=== PATIENT | male | born 1960 | race Caucasian/White ===

== ENCOUNTER 2024-05-23 12:24 | Outpatient (OUT) | payer SELFPAY ==
--- NOTE | 2024-05-23 12:27 | XR_ITS ---
The [address] [address] Patient Name: BOB LIMA MRN: [id number] date: 1960 Sex: M Assigned Patient Location: [facility] Current Patient Location: Accession/Order Number: [id number] Exam Date: 05/23/2024 12:45 Report Date: 05/24/2024 06:41 At the request of: BOB BREWER Procedure: XR foot KASHMIR min 3V EXAMINATION: XR foot KASHMIR min 3V HISTORY: pain in right and left foot COMPARISON: No relevant comparison available. FINDINGS: RIGHT FINDINGS: BONES: Prior bunionectomy, first metatarsal osteotomy and repair, and bone staple within first proximal phalanx. Moderate degenerative changes the first metatarsophalangeal joint. Multifocal mild degenerative changes of the interphalangeal joints of the second through 5th toes. Prior resection versus posttraumatic changes involving the head of the fourth proximal phalanx. SOFT TISSUES: No visible soft tissue swelling. OTHER: Negative. LEFT FINDINGS: BONES: Moderate degenerative changes the first metatarsophalangeal joint. Possibly prior bunionectomy. Mild degenerative changes throughout the interphalangeal joints. SOFT TISSUES: No visible soft tissue swelling. OTHER: Negative. 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 LEFT CONCLUSION: Mild-moderate degenerative changes. Electronically authenticated by: JANIS RAYGOZA Date: 05/24/2024 06:41
== END 2024-05-23 12:25 | disposition home or self-care (01) ==
PROVIDERS: Visit Provider Podiatrist Foot & Ankle Surgery
DX: M79.671 Pain in right foot (principal); M79.672 Pain in left foot; Z98.890 Other specified postprocedural states
CPT/HCPCS: 73630

== ENCOUNTER 2024-06-07 12:07 | Outpatient (OUT) | payer MEDICAID, SELFPAY ==
--- NOTE | 2024-06-07 12:15 | ECG_ITS ---
The [facility] Test Date: 2024-06-07 Pat Name: BOB LIMA Department: Room: - Gender: Male [employer] Tender: : 1960 Requested By: BOB BREWER Order Number: [id number] Reading MD: HENNA HINOJOSA Measurements Intervals Mcgill Rate: 60 P: 31 ND: 183 QRS: -19 QRSD: 99 T: 37 QT: 392 QTc: 394 Interpretive Statements SINUS RHYTHM WITH SINUS ARRHYTHMIA POSSIBLE RIGHT VENTRICULAR CONDUCTION DELAY [RSR (QR) IN V1/V2] MODERATE VOLTAGE CRITERIA FOR LVH, CONSIDER NORMAL VARIANT [MEETS CRITERIA IN ONE OF: R(aVL), S(V1), R(V5), R(V5/V6)+S(V1)] No previous ECG available for comparison Electronically Signed On 06-07-2024 17:43:27 EST by HENNA HINOJOSA
--- OUTSIDE RECORDS SUMMARY | 2024-06-07 12:27 | XMS_ITS | CCD ---
Author Organization [facility] Care Team Providers Care Car Greaser Name Role Phone CLEMENTINE PAGE Attending Unavailable [...] symptoms, # 30 cap(s), Refills(s) 0, [facility], cm, 12/25/23 17:13:00 EDT, [...] Daily, # 90 tab(s), Refills(s) 3, [facility], cm, 10/25/23 12:56:00 EDT, Height/Length Dosing, 99.8, kg, 10/25/23 12:56:00 EDT, Weight Dosing Start Date: 10/25/23 Status: Ordered montelukast 10 mg oral tablet (2 sources) Leukotriene Receptor Antagonist Start: 10-25-2023 take 1 tablet by mouth once daily Singulair 10 mg Tab 10 mg = 1 tab(s), Oral, Daily, # 90 tab(s), Refills(s) 3, Pharmacy: [facility] 1986, 182, cm, 10/25/23 12:56:00 EDT, Height/Length Dosing, 99.8, kg, 10/25/23 12:56:00 EDT, Weight Dosing Start Date: 10/25/23 Status: Ordered predniSONE 20 mg oral tablet (1 source) Start: 12-25-2023 End: 12-29-2023 take 3 tablets by mouth once daily predniSONE 20 mg Tab 60 mg = 3 tab(s), Oral, Daily, X 4 day(s), # 12 tab(s), Refills(s) 0, Pharmacy: [facility] 1986, 182, cm, 12/25/23 17:13:00 EDT, [...] symptoms, # 30 cap(s), Refills(s) 0, Pharmacy: [facility] 1985, 182, cm, 12/25/23 17:13:00 EDT, Height/Length Dosing, 101.7, kg, 12/25/23 17:13:00 EDT, Weight Dosing famotidine, 40 mg = 2 tab(s), Tab, Oral, Once, Stop date 12/25/23 17:42:00 EDT, STAT, Start date 12/25/23 17:42:00 EDT, 12/25/23 17:42:00 EDT predniSONE, 60 mg = 3 tab(s), Oral, Daily, X 4 day(s), # 12 tab(s), Refills(s) 0, Pharmacy: [facility] 1985, 182, cm, 12/25/23 17:13:00 EDT, [...] CONWAY In 3 days 12/28/[address] [place], (more content not included)... Normal [facility] Comment on above: Result Comment: Elec tronically Signed By: Silverio Chen PA-C\.br\Date and Time Signed: 12/25/23 21:28 EDT\.br\Electronically Co-Signed By: Jimy Shook DO\.br\Date and Time Co-Signed: 01/05/24 06:43 EDT ED Clinical Summaryon 2023 ED Clinical Summary ED Clinical Summary [address] [address] ED Clinical Summary Person Information Name: BOB LIMA [facility] Age: 63 Years : 1960 Sex: Male Language: Belarusian PCP: Aashish CONWAY DO, FAAFP Marital Status: [...] 12/25/2023 19:05:59 12/25/2023 19:05:59 12/25/2023 19:05:59 ADDRESS: [address] [place] [address] [address] [place] [id number] PHYS DOC NOTES: MEDICAL INFORMATION: Prescriptions Given: New Medications [facility], [address] [place], [place] [id number], [phone] diphenhydrAMINE (diphenhydrAMINE 25 mg Cap) 1 Capsules [...] Follow up: With: Address: When: Aashish Logan [facility], [facility] [address] [place] [id number] [facility] (1) In 3 days 12/28/2023 DIAGNOSIS: Bee sting reaction Normal [facility] ED Patient Summaryon ED Patient Summary ED Patient Summary [address] [address] Patient Discharge Instructions Person Information Name: BOB LIMA Age: 63 Years Arrival Date: 12/25/2023 17:07:15 Discharge Diagnosis: Bee sting reaction Primary Care Physician: Aashish CONWAY DO, FAAFP Provider Information Primary Provider: Jimy Shook DO Advanced Barrel And Receiver Aligner:Silverio Chen PA-C. The exam and treatment you received in the Emergency Department were for an urgent problem and are not intended as complete care. It is important that you follow up with a doctor, nurse practitioner, or physician?s kindergarten instructional assistant for ongoing care. If your symptoms become [...] Instructions: With: Address: When: Aashish [place], [facility] [place] [address] [facility] (1) In 3 days 12/28/2023 In the event that this physician does not participate in your insurance network, please consult with your insurance company to find a nearby participating provider. Patient Education Materials: Bee, Wasp, or Hornet Sting, Adult A MESSAGE TO ALL PATIENTS REGARDING OPIOIDS PRESCRIPTION OPIOIDS: WHAT YOU NEED TO KNOW Prescription opioids can be used to help relieve sokzjwff-bu-uztpvk pain and are often prescribed following a [...] be struggling with addiction, tell your health youth care specialist and ask for guidance or call [facility] (more content not included)... Normal [facility] Physician Referralon 024 Physician Referral [id number]#1.00TIFF Normal [facility] Family Medicine Office/Clini c Noteon 10-25-2023 [...] kicking my butt, the Singulair helps the [place] is the worst is getting toward the [...] labeling, # 21 tab(s), Refills(s) 1, Pharmacy: [facility], 182, cm, 07/19/23 11:42:00 EST, Height/Length Dosing, 102.2, kg, 07/19/23 11:42:00 EST, Weight Dosing 2. Left lumbar radiculitis (M54.16: Radiculopathy, lumbar region) see 1 Ordered: methylPREDNISolone, = 1 packet(s), Oral, As Directed, as directed on package labeling, # 21 tab(s), Refills(s) 1, Pharmacy: [facility] 1985, 182, cm, 07/19/23 11:42:00 EST, [...] weight manageme (more content not included)... Normal [facility] Comment on above: Result Comment: Elec [...] at home: Medicines ? Take or apply btvd-vaz-urnmwqw and prescription medicines only as told by [...] the hospital. Summary ? Take or apply rgex-oat-olvvrrr and prescription medicines only as told by [...] a row for (more content not included)... [facility] PT - Assessmentson 4 PT - Assessments [id number]#1.00TIFF [facility] PT - Home Exercise Programon 08-19-2023 PT - Home Exercise Program [id number]#1.00TIFF [facility] PT - Home Exercise Programon 08-10-2023 PT - Home Exercise Program [id number]#1.00TIFF [facility] PT - Home Exercise Programon 07-29-2023 PT - Home Exercise Program [id number]#1.00TIFF [facility] Consent for Treatmenton Consent for Treatment [id number]#1.00TIFF [facility] PT - Assessmentson PT - Assessments [id number]#1.00TIFF [facility] PT - Consentson 07-22-2023 PT - Consents [id number]#1.00TIFF [facility] PT - Home Exercise Programon 07-22-2023 PT - Home Exercise Program [id number]#1.00TIFF Kirt Lanier [facility] Ambulatory Visit Summaryon 0 07-19-2023 Ambulatory [...] hernia, History of repair of umbilical hernia, Oley tooth. Discharge Vitals Temperature (Temporal Artery) 36.7 ?C Heart Rate (Peripheral) 74 Respiratory Rate 18 Blood Pressure 134/82 Height 182 cm Height 72 in Weight 102.2 kg Weight 224.84 lb BMI 30.85 What to do next You Need to Schedule the Following Appointments Follow Up with Aashish CONWAY DO, FAAFP, JULIUS, PED When: In 3 months Where: [address] [facility] [place] [address]- Medications What How Much When Why Instructions New amoxicillin-clavulanate (Augmentin 875 mg oral tablet) 1 Tablets By Mouth Every 12 hours Frontal sinusitis Duration: 10 Days Pickup at [facility] 1985 New methylPREDNISolone (Medrol 4 mg Tab) 1 Packets By Mouth As Directed Left lumbar radiculitis Sciatica of left side Refills: 1 as directed on package labeling Pickup at [facility] 1985 Unchanged ascorbic acid (Vitamin C 500 mg Tab) 1 Tablets By Mouth Every day Unchanged fluticasone nasal (Flonase 0.05 mg/ inh nasal spray) 50 Microgram Nasal Inhalation 2 times a day Unchanged loratadine 10 Milligram By Mouth Every day Unchanged montelukast (Singulair 10 mg Tab) 1 Tablets By Mouth Every day Pharmacy Information [facility] 1986: [address] [place], [place] [id number] [phone] Allergies No Known Allergies Problems Ongoing - [...] tailbone toward (more content not included)... Normal [facility] BMPon 07-19-2023 Anion gap [Moles/Vol] 13 mmol/L Normal 6-16 [facility] Comment on above: Performed By: #### 2 648995, 71375305, 7800442, 0899811, 3807994, 69133279, 572861874 ####[facility] [address] [place] [address] Calcium [Mass/Vol] 9.6 mg/dL Normal 8.9-11.1 [facility] Comment on above: Performed By: #### 2 013035, 91976660, 3962165, 6851563, 9429939, 09175954, 672572107 ####[facility] [address] [place] [address] Chloride [Moles/Vol] 102 mmol/L Normal 101-111 [facility] Comment on above: Performed By: #### 2 368460, 06134519, 8971422, 1006781, 8563615, 91044342, 593469730 ####[facility] [address] [place] [address] CO2 [Moles/Vol] 28 mmol/L Normal 21-31 [facility] Comment on above: Performed By: #### 2 306285, 64724456, 0296398, 1139578, 3786319, 41060252, 113048761 ####[facility] [address] [place] [address] Creatinine [Mass/Vol] 1.1 mg/dL Normal 0.5-1.3 [facility] Comment on above: Performed By: #### 2 534958, 99478520, 0003822, 6451867, 1012400, 59498943, 862308034 ####[facility] [address] [place] [address] Glucose [Mass/Vol] 83 mg/dL Normal 55-199 [facility] Comment on above: Performed By: #### 2 224863, 06345970, 0540896, 8329259, 0366267, 78083451, 250066115 ####[facility] [address] [place] [address] Potassium [Moles/Vol] 4.3 mmol/L Normal 3.5-5.3 [facility] Comment on above: Performed By: #### 2 555362, 39262345, 6074089, 1857311, 2141131, 69788203, 929713237 ####[facility] [address] [place] [address] Sodium [Moles/Vol] 139 mmol/L Normal 135-145 [facility] Comment on above: Performed By: #### 2 978138, 16635249, 0255781, 9392912, 0169954, 23487366, 749637469 ####[facility] [address] [place] [address] Urea nitrogen [Mass/Vol] 15 mg/dL Normal 5-21 [facility] Comment on above: Performed By: #### 2 025000, 33065633, 4844851, 6154963, 1652113, 01210863, 682845336 ####[facility] [address] [place] [address] Urea nitrogen/Creatini ne [Mass ratio] 14 No Units Normal 10-20 [facility] Comment on above: Performed By: #### 2 560654, 45434793, 2120390, 5613645, 7361536, 75464794, 387884121 ####[place] [address] [place] [address] CBC w/ Auto Diffon 4 Basophils/100 WBC (Bld) 0.5 % Normal 0.0-2.0 [facility] Comment on above: Performed By: #### 2 568689, 14847455, 1940943, 3787763, 5626085, 27897697, 857079840 ####[address] [address] Basophils/Leukocy les Auto (Bld) [Pure # fraction] 0.0 E9/L Normal 0.0-0.2 [facility] Comment on above: Performed By: #### 2 822595, 15926703, 8480112, 4331499, 0308310, 54738011, 585141625 ####[address] [address] Eosinophils (Bld) [#/Vol] 0.2 E9/L Normal 0.0-0.5 [facility] Comment on above: Performed By: #### 2 284123, 44795638, 6257719, 6678379, 8385807, 03074588, 516487659 ####[address] [address] Eosinophils/100 WBC (Bld) 2.4 % Normal 0.0-8.0 [facility] Comment on above: Performed By: #### 2 848527, 99378130, 0091782, 9415623, 0640342, 79030729, 886876675 ####[address] [address] Erythrocyte distribution width (RBC) [Ratio] 13.4 % Normal 10.9-14.2 [facility] Comment on above: Performed By: #### 2 219750, 91813694, 1912424, 5999695, 8560827, 84126980, 161888002 ####[facility] [address] [place] [address] Hematocrit (Bld) [Volume fraction] 44.0 % Normal 37.7-49.0 [facility] Comment on above: Performed By: #### 2 555013, 20118443, 2803813, 2758158, 8260170, 22436181, 159393210 ####[place] [address] [place] [address] Hemoglobin (Bld) [Mass/Vol] 14.7 g/dL Normal 13.5-17.5 [facility] Comment on above: Performed By: #### 2 642221, 12831054, 5175936, 8836559, 0616284, 30945142, 067807126 ####[address] [address] Lymphocytes (Bld) [#/Vol] 2.2 E9/L Normal 1.0-4.0 [facility] Comment on above: Performed By: #### 2 397420, 83801177, 3686286, 6241279, 2038445, 84788047, 409860428 ####[address] [address] Lymphocytes/100 WBC (Bld) 26.5 % Normal 14.0-50.0 [facility] Comment on above: Performed By: #### 2 466408, 43893343, 9965268, 9104885, 1394674, 79991459, 534334080 ####[place] [place] [address] MCH (RBC) [Entitic mass] 30.0 pg Normal 27.0-34.0 [facility] Comment on above: Performed By: #### 2 988706, 41667189, 4367502, 4180362, 6852567, 09778044, 977967844 ####[address] [address] MCHC (RBC) [Mass/Vol] 33.4 g/dL Normal 31.4-36.0 [facility] Comment on above: Performed By: #### 2 262910, 17200778, 4580879, 5918750, 5764174, 18730535, 413461707 ####[facility] [address] [place] [address] MCV (RBC) [Entitic vol] 89.7 fL Normal 80.0-100.0 [facility] Comment on above: Performed By: #### 2 447622, 13366596, 0517862, 1872135, 6580965, 63836390, 552608453 ####[address] [place] [address] Monocytes (Bld) [#/Vol] 0.7 E9/L Normal 0.2-1.0 [facility] Comment on above: Performed By: #### 2 044720, 98298694, 5181913, 4247636, 9959283, 55901901, 048832672 ####[address] [address] Neutrophils (Bld) [#/Vol] 5.1 E9/L Normal 2.0-7.5 [facility] Comment on above: Performed By: #### 2 902716, 20735587, 9546092, 5540037, 9769942, 72918706, 562535541 ####[address] [address] Neutrophils/100 WBC (Bld) 62.4 % Normal 36.0-75.0 [facility] Comment on above: Performed By: #### 2 300209, 14904777, 4587475, 8235341, 0813875, 80440304, 059575014 ####[address] [address] [place] [address] Platelet 256.0 E9/L Normal 150.0-500.0 [facility] Comment on above: Performed By: #### 2 147173, 32147022, 5461468, 0193944, 9563569, 89054414, 239449695 ####[facility] [address] [place] [address] Platelet mean volume (Bld) [Entitic vol] 8.1 fL Normal 6.4-10.8 [facility] Comment on above: Performed By: #### 2 132809, 23037011, 7319117, 7032221, 2100029, 65625444, 227995738 ####[facility] [address] [place] [address] RBC (Bld) [#/Vol] 4.9 E12/L Normal 4.3-5.9 [facility] Comment on above: Performed By: #### 2 067929, 61218630, 3753049, 1553668, 5414095, 38871162, 533351964 ####[place] [address] [place] [address] WBC corrected for nucl RBC Auto (Bld) [#/Vol] 8.2 E9/L Normal 4.0-11.0 [facility] Comment on above: Performed By: #### 2 011855, 07665887, 1896482, 5987061, 9822864, 33730098, 565144761 ####[facility] [address] [place] [address] Consent for Treatmenton Consent for Treatment [id number]#1.00TIFF Normal [facility] Family Medicine Office/Clini c Noteon 07-19-2023 [...] day(s), # 20 tab(s), Refills(s) 0, Pharmacy: [facility] 1985, 182, cm, 07/19/23 11:42:00 EST, [...] as di (more content not included)... Normal [facility] Comment on above: Result Comment: Elec tronically Signed By: MAN LEAL FAAFP, Aashish Vasquez\chris\Date and Time Signed: 07/19/23 12:47 EST Hep Func Panelon 07-19-2023 Albumin [Mass/Vol] 4.3 g/dL Normal 3.3-5.0 [facility] Comment on above: Performed By: #### 2 245553, 17598502, 9401927, 1007569, 0899968, 47218642, 187018249 ####[facility] [address] [place] [address] Albumin/Globulin (S) [Mass conc ratio] 1.5 Normal 1.1-2.2 [facility] Comment on above: Performed By: #### 2 246271, 70159801, 0077644, 0321471, 7856139, 88222257, 836133947 ####[facility] [address] [place] [address] ALP [Catalytic activity/Vol] 54 Int._Unit/L Normal 21-98 [facility] Comment on above: Performed By: #### 2 445373, 55703404, 8600777, 7029867, 6033906, 20209244, 591855958 ####[facility] [address] [place] [address] ALT No additional P-5'-P [Catalytic activity/Vol] 27 Int._Unit/L Normal 6-46 [facility] Comment on above: Performed By: #### 2 713589, 84635554, 4913116, 2843545, 0415263, 53099203, 998718434 ####[facility] [address] [place] [address] AST [Catalytic activity/Vol] 26 Int._Unit/L Normal 5-43 [facility] Comment on above: Performed By: #### 2 466987, 47396686, 0406515, 9574535, 1213523, 07338001, 770803017 ####[facility] [address] [place] [address] Bilirubin [Mass/Vol] 0.6 mg/dL Normal 0.0-1.1 [facility] Comment on above: Performed By: #### 2 789423, 40050701, 2229471, 3433923, 7366592, 74168359, 168874549 ####[facility] [address] [place] [address] Bilirubin.direct [Mass/Vol] 0.1 mg/dL Normal 0.0-0.4 [facility] Comment on above: Performed By: #### 2 271960, 93806037, 1943098, 0400216, 8047626, 74189509, 933319827 ####[facility] [address] [place] [address] Bilirubin.indirec t [Mass or moles/Vol] 0.5 mg/dL Normal 0.1-0.9 [facility] Comment on above: Performed By: #### 2 436843, 62157161, 7064596, 5052232, 7991761, 16431034, 342091622 ####[facility] [address] [place] [address] Globulin (S) [Mass/Vol] 2.9 g/dL Normal 1.4-4.0 [facility] Comment on above: Performed By: #### 2 956448, 94774346, 1773142, 4115080, 3359788, 42063132, 316208475 ####[facility] [address] [place] [address] Protein [Mass/Vol] 7.2 g/dL Normal 6.0-7.8 [facility] Comment on above: Performed By: #### 2 984133, 82480161, 2516498, 4729593, 5463773, 38655797, 008422946 ####[facility] [address] [place] [address] KrjS2grm 07-19-2023 HbA1c (Bld) [Mass fraction] 5.7 % Normal <=5.9 [facility] Comment on above: Performed By: #### 2 416506, 04339156, 8174873, 1612889, 0989058, 62788243, 357560332 ####[facility] [address] [place] [address] Lipid Panelon 07-19-2023 Cholesterol [Mass/Vol] 166 mg/dL Normal 120-200 [facility] Comment on above: Performed By: #### 2 342342, 93482360, 7046978, 1075023, 4064867, 27622431, 725528340 ####[facility] [address] [place] [address] Cholesterol in HDL [Mass/Vol] 34 mg/dL Invalid Interpretation Code [facility] Comment on above: Result Comment: '>= 60 LOW RISK' '<= 40 HIGH RISK' Performed By: #### 2 385953, 80593113, 1229525, 7380468, 8093202, 00819559, 483414381 ####[facility] [address] [place] [address] Cholesterol in LDL [Mass/Vol] 87 mg/dL Normal <=129 [facility] Comment on above: Performed By: #### 2 641901, 12540725, 1868260, 0560187, 6745173, 54578105, 363672384 ####[facility] [address] [facility] [place] [address] Cholesterol in VLDL [Mass/Vol] 51 mg/dL High 7-40 [facility] Comment on above: Performed By: #### 2 238161, 12059588, 7160382, 9688447, 8804189, 44995953, 386144867 ####[facility] [address] [place] [address] Triglyceride [Mass/Vol] 254 mg/dL High <=149 [facility] Comment on above: Performed By: #### 2 867783, 10824709, 4983901, 2624236, 0344512, 71430880, 864102277 ####[facility] [address] [place] [address] PSA Screen, Totalon 07-19-19 24 Prostate specific Ag [Mass/Vol] 0.5 ng/mL Normal 0.1-3.5 [facility] Comment on above: Result Comment: The concentration of PSA determined by different manufacturers can vary due to differences in assay methods and reagent specificity. Values obtained from different assay methods cannot be used interchangeably. The methodology used for this result was chemiluminescence using [employer] Access [employer]ite[employer] PSA reagent. Performed By: #### 2 670871, 01430810, 4618813, 4599400, 1182167, 13631165, 896988170 ####[facility] [address] [place] [address] Patient Educationon 07-19-19 24 Patient Education Orthopedics [...] the exercise (more content not included)... Normal [facility] eGFRon 07-19-2023 eGFR 76 mL/min/1.73 m2 Normal >=59 [facility] Comment on above: Order Comment: Order added by Discern Expert. Performed By: #### 2 824330, 87734092, 3244914, 0732703, 6936568, 85243017, 423543382 ####[facility] [address] [place] [address] Vital Signs Date Time Vital Sign Value Performing Clinician Rachel [facility] 12-25-2023 17:11-0400 Body temperature 97.88 [degF] Jimy Shook [facility] 12-25-2023 17:11-0400 Diastolic blood pressure 101 mm[Hg] Jimy Shook [facility] 12-25-2023 17:11-0400 Heart rate 70 /min Jimy Shook [facility] 12-25-2023 17:11-0400 Respiratory rate 16 /min Jimy Shook [facility] 12-25-2023 17:11-0400 SaO2% (BldA) [Mass fraction] 94 % Jimy Shook [facility] 12-25-2023 17:11-0400 Systolic blood pressure 163 mm[Hg] Jimy Shook [facility] 10-25-2023 12:50-0400 Blood Pressure Location Aashish CEELE [facility] 10-25-2023 12:50-0400 Body temperature 97.88 [degF] Aashish KAPLE [facility] 10-25-2023 12:50-0400 Diastolic blood pressure 70 mm[Hg] Aashish KAPLE [facility] 10-25-2023 12:50-0400 Heart rate 74 /min Aashish KAPLE [facility] 10-25-2023 12:50-0400 Respiratory rate 18 /min Aashish KAPLE [facility] 10-25-2023 12:50-0400 SaO2% (BldA) [Mass fraction] 98 % Aashish CONWAY [facility] 10-25-2023 12:50-0400 Systolic blood pressure 120 mm[Hg] Aashish CONWAY [facility] Encounters Encounter Date Encounter Type Care Provider Facility Start: 12-25-2023 End: 12-25-2023 Emergency department patient visit Jimy Michael Shook [facility] Start: 12-21-2023 End: 12-21-2023 ambulatory JARRELL HEBERT Not Available Start: 10-25-2023 End: 10-25-2023 ambulatory Aashish CONWAY Facility:[facility] Start: 10-25-2023 End: 10-25-2023 Patient encounter procedure Aashish CONWAY [facility] Start: 07-22-2023 End: 11-14-2023 ambulatory Aashish CONWAY Facility:[facility] Start: 07-19-2023 End: 07-19-2023 ambulatory Aashish CONWAY Facility:[facility] Start: 07-19-2023 End: 07-19-2023 ambulatory Aashish CONWAY Facility:[facility] Start: 05-13-2023 End: 05-13-2023 ambulatory CLEMENTINE PAGE Facility:[facility] Procedures Date Procedure Procedure Detail Performing [...] cility 08-06-2023 zoster vaccine recombinant Aashish CONWAY [facility] 05-01-2023 zoster vaccine recombinant Aashish CONWAY [facility] 08-24-2020 SARS-CoV-2 (COVID-19 ) mRNA-1273 vaccine Aashish CONWAY [facility] 07-27-2020 SARS-CoV-2 (COVID-19 ) mRNA-1273 vaccine Aashish CONWAY [facility] 03-06-2014 influenza virus vaccine, unspecified formulation Aashish CONWAY [facility] 12-01-2007 tetanus toxoid, reduced diphtheria toxoid, and acellular pertussis vaccine, adsorbed Aashish CONWAY [facility] NEGATED: Highlighted row has not occurred!05-26-2019 influenza virus vaccine, live, attenuated, for intranasal use Aashish CONWAY [facility] NEGATED: Highlighted row has not occurred!03-17-2019 influenza virus vaccine, unspecified formulation Aashish CONWAY [facility] Payers Date Payer Category Payer Medicaid [id number] 1960 Unknown [id number] 2.16.84 [id number] 1960 Unknown [id number] 2.16.8 [id number] 1960 Unknown [id number] 2.16.8 [id number] 1960 Unknown [id number] 2.16.8 [id number] 1960 Unknown [id number] 2.16.8 [id number] 1960 Unknown [id number] 2.16.8 [id number] Social History Date Type Detail Facility Start: 10-25-2023 Tobacco smoking status Never s moked tobacco (finding) [facility] Tobacco smoking status Never [facility] Sex Assigned At Male [facility] Functional Status Date Assessment Result Facility 12-25-2023 Functional Status N/A [facility] 10-25-2023 Functional Status N/A [facility] Discharge instructions 12-25-2023 Note [...] your health care provider. Apply or take wvuz-jhh-symacml and prescription medicines only as told by [...] provider. Document Revised: 06/30/2022 Document Reviewed: 06/30/2022 [employer] Patient Education 2022 [employer]. Follow Up Care 12/25/2023 17:08:31 With:Aashish CONWAY Address: [address], [place] [address]- Business (1) When:12/28/2023 18:28:09 [facility] Clinical Note 12-25-2023 Note Date & Type [...] health care provider. ? Apply or take xjsb-tbl-pqzphyn and prescription medicines only as told by [...] swarm seems likely. (more content not included)... [facility] Discharge instructions 10-25-2023 Note Date & Type Note Facility 10-25-2023 Hospital Discharg e instructions Patient Education 10/25/2023 13:10:35 Allergies, Adult, Chtu-gs-Wtie Allergies, Adult An allergy means that your [...] instructions at home: Medicines Take or apply aich-qai-arjbctl and prescription medicines only as told by [...] to the hospital. Summary Take or apply aeam-htu-ajqylzq and prescription medicines only as told by [...] provider. Document Revised: 03/13/2020 Document Reviewed: 03/13/2020 [employer] Patient Education 2022 [employer]. 10/25/2023 13:10:27 Back Exercises, Rnii-pe-Bxis Back Exercises These exercises help to make [...] provider. Document Revised: 07/16/2021 Document Reviewed: 07/16/2021 [employer] Patient Education 2022 [employer]. Follow Up Care 07/19/2023 12:36:38 With:MAN LEAL FAAFP, Aashish Vasquez, FAM, PED Address: [address], [place] [address]- When:Within 1 Year(s) With:Aashish CONWAY DO, FAAFP, FAM, PED Address: [address] [place] [address] [place] [address]- When:Within 6 Month(s) [facility] Progress note 05-13-2023 Note Date & Type Note Facility 05-13-2023 Note HNO ID: [id number] Author: Clementine Page, DELMER Service: ? Author Type: BROACH SETTER Type: Progress Notes Filed: 05/13/2023 3:16 PM [...] Page, OD May 13, 2023 3:15 PM [facility] Evaluation + Plan note Note Date & Type Note Facility Evaluation + Plan note [facility] Hospital course Narrative Note Date & Type Note Facility Hospital course Narrative No data available for this section [facility] Progress note Note Date & Type Note Facility Progress note No data available for this section [facility] Reason for referral (narrative) Note Date & Type Note Facility Reason for referral (narrative) Referred by: Aashish CONWAY DO, FAAFP [facility] Summary Purpose Family History No [...] section and content) DATE CREATED AUTHOR 05/15/2023 [facility] DATE CREATED AUTHOR AUTHOR'S ORGANIZ ATION 12/23/2023 [facility] DATE CREATED AUTHOR AUTHOR'S ORGANIZ ATION 01/06/2024 [facility] Patient Care team informatio n (unrecognized section and content) Personnel Name: Aashish CONWAY DO, FAAFP Address: Address: [address] [place] [address] Personnel Name: Aashish CONWAY DO, FAAFP Address: Address: [address] [place] [address] FOR RECORDS PERTAINING TO PATIENTS WHO ARE [...] BE BASED ON THE PRIMARY CLINICAL RECORDS. [facility]. provides no warranty or guarantee of the accuracy or completeness of information in this document.
--- NOTE | 2024-06-07 13:10 | PM.PRESUREVA ---
History of Present Illness History of Present Illness Chief complaint: right foot hallux valgus Narrative: Mr. Nguyen 63-year-old male presents to presurgical testing with complaints of pain to his right first metatarsal. He been evaluated by Dr. Aguilar with a diagnosis of right foot hallux valgus. He is scheduled for right first metatarsal phalangeal joint fusion removal of orthopedic hardware, correction of toe deformities, soft tissue balancing and bone graft as needed he is scheduled on June 12, 2024. Review of Systems ROS Narrative REVIEW OF SYSTEMS: Negative except as stated in HPI, ten or more systems reviewed. Constitutional: No fever, chills, weakness ENT: No sore throat or epistaxis Cardiovascular: No edema, chest pain, palpitations, or activity intolerance Respiratory: No shortness of breath, cough, or wheezing Musculoskeletal: Complains of pain to right foot and right first toe Gastrointestinal: No abdominal pain, constipation, diarrhea, or vomiting Genitourinary: No dysuria or hematuria Neurological: No numbness, tingling, weakness, or headache Psychiatric: No mood changes PFSH PFSH Medical History (Updated 06/07/24 @ 13:17 by Mary Marin) Hallux valgus of right foot ?M20.11 - Hallux valgus (acquired), right foot (ICD-10) Seasonal allergies ?J30.2 - Other seasonal allergic rhinitis (ICD-10) Surgical History (Updated 06/07/24 @ 12:47 by Mary Marin) History of bunionectomy ?Z98.890 - Other specified postprocedural states (ICD-10) History of hernia repair ?Z98.890 - Other specified postprocedural states (ICD-10) ?Z87.19 - Personal history of other diseases of the digestive system (ICD-10) Family History (Updated 06/07/24 @ 12:45 by Mary Marin) Other Family history of coronary artery disease Family history of heart disease Family history of myocardial infarction Social History (Updated 06/07/24 @ 12:42 by Mary Marin) Within the past year, how often did you have a drink containing alcohol: never Score interpretation: A score less than 4 is consistent with normal alcohol consumption. Smoking status: Never smoker Non-prescribed substance use: denies use Previous occupational history: career development coordinator/teacher Highest level of school completed/degree received: Associate degree: occupational, technical, vocational program Meds Home Medications and Allergies Allergies Allergy/AdvReac Type Severity Reaction Status Date / Time No Known Drug Allergies Allergy Verified 06/07/24 12:36 Exam Narrative Exam Narrative: Constitutional: Awake, alert, comfortable, well-appearing, nontoxic, interactive, vital signs as charted Head: Normocephalic, atraumatic Eyes: Conjunctiva and lids normal to inspection, pupils normal ENT: Tympanic membranes pearly ojeda, nonerythematous, noninjected, naris patent, posterior oropharynx clear, oral mucosa moist Neck: Supple, normal appearance, normal range of motion, no meningeal signs, no lymphadenopathy Respiratory: No respiratory distress, breath sounds clear Cardiovascular: Regular rate and rhythm, strong and regular heart tones Abdomen: Nontender, normal bowel sounds, soft, no CVA tenderness Musculoskeletal: Normal gait please see Dr. Redmond thorough examination of the right foot from office visit note dated 05/23/2024 Skin: No rashes or induration, no lesions, only visible skin inspected Neuro: No neurological deficits, normal sensation Psychiatric: Oriented ?3, normal affect Assessment and Plan Assessment and Plan (1) Hallux valgus of right foot: Plan He is scheduled for right first metatarsal phalangeal joint fusion, removal of orthopedic hardware, correction of toe deformities, soft tissue balancing and bone graft this procedure is scheduled on 06/12/[address] Aguilar
== END 2024-06-07 12:08 | disposition home or self-care (01) ==
LOC: PST 12:07
PROVIDERS: PCP Family Medicine; Visit Provider Podiatrist Foot & Ankle Surgery
DX: Z01.810 Encounter for preprocedural cardiovascular examination (principal); Z01.818 Encounter for other preprocedural examination; M20.11 Hallux valgus (acquired), right foot
CPT/HCPCS: 93005; G0463

== ENCOUNTER 2024-06-12 07:05 | Day surgery (SDC) | payer MEDICAID, SELFPAY ==
--- OUTSIDE RECORDS SUMMARY | 2024-06-07 12:18 | XMS_ITS | CCD ---
Author Organization [facility] Care Team Providers Care Salt Miner Name Role Phone CLEMENTINE PAGE Attending Unavailable Aashish CONWAY Primary Care Physician JARRELL HEBERT Attending Unavailable AASHISH CONWAY Referring Unavailable Aashish CONWAY Referring Unavailable Aashish CONWAY Attending Unavailable Aashish CONWAY Admitting Unavailable Aashish CONWAY Attending Unavailable Jimy Shook Attending Unavailable Aashish CONWAY Attending Unavailable Aashish CONWAY Attending Unavailable Medications Current Medications Medication Drug Class(es) Dates Sig (Normalized) Sig (Original) diphenhydrAMINE hydrochloride 25 mg oral capsule (1 source) Histamine-1 Receptor Antagonist Start: 12-25-2023 take 1 capsule by mouth three times daily as needed diphenhydrAMINE 25 mg Cap 25 mg = 1 cap(s), Oral, TID, PRN for allergy symptoms, # 30 cap(s), Refills(s) 0, [facility], [facility], cm, 12/25/23 17:13:00 EDT, Height/Length Dosing, 101.7, kg, 12/25/23 17:13:00 EDT, Weight Dosing Start Date: 12/25/23 Status: Ordered Flonase 0.05 mg/inh nasal spray (2 sources) Start: 03-24-2018 Flonase 0.05 mg/inh nasal spray 50 microgram, Nasal, BID, Refill(s) 0, Allergy symptoms Start Date: 03/24/18 Status: Ordered loratadine 10 mg oral tablet (2 sources) Start: 10-25-2023 take 1 tablet by mouth once daily Claritin 10 mg Tab 10 mg = 1 tab(s), Oral, Daily, # 90 tab(s), Refills(s) 3, [facility], [facility], cm, 10/25/23 12:56:00 EDT, Height/Length Dosing, 99.8, kg, 10/25/23 12:56:00 EDT, Weight Dosing Start Date: 10/25/23 Status: Ordered montelukast 10 mg oral tablet (2 sources) Leukotriene Receptor Antagonist Start: 10-25-2023 take 1 tablet by mouth once daily Singulair 10 mg Tab 10 mg = 1 tab(s), Oral, Daily, # 90 tab(s), Refills(s) 3, Pharmacy: [facility], 182, cm, 10/25/23 12:56:00 EDT, Height/Length Dosing, 99.8, kg, 10/25/23 12:56:00 EDT, Weight Dosing Start Date: 10/25/23 Status: Ordered predniSONE 20 mg oral tablet (1 source) Start: 12-25-2023 End: 12-29-2023 take 3 tablets by mouth once daily predniSONE 20 mg Tab 60 mg = 3 tab(s), Oral, Daily, X 4 day(s), # 12 tab(s), Refills(s) 0, Pharmacy: [facility], 182, cm, 12/25/23 17:13:00 EDT, Height/Length Dosing, 101.7, kg, 12/25/23 17:13:00 EDT, Weight Dosing Start Date: 12/25/23 Stop Date: 12/29/23 Status: Ordered Vitamin C 500 mg Tab (2 sources) Start: 03-17-2019 take 1 tablet by mouth once daily Vitamin C 500 mg Tab 500 mg = 1 tab(s), Oral, Daily, Refills(s) 0 Start Date: 03/17/19 Status: Ordered Problems Problem Classification Problem Date Documented Date Episodic/Chronic Acquired foot deformities (2 sources) Hammer toe 03-07-2012 Chronic Comment on above: 2ND, 3RD, 4TH TOES R IGHT FOOT Acquired foot deformities (2 sources) Bunion 07-28-2013 Episodic Comment on above: RIGHT FOOT Acute bronchitis (2 sources) Acute infective bronchitis 06-12-2019 Episodic Allergic reactions (3 sources) Other allergy status, other than to drugs and biological substances; Translations: [Environmental allergy] Onset: 10-25-2023 Episodic Diabetes mellitus without complication (2 sources) Hyperglycemia 03-16-2019 Episodic Other and unspecified benign neoplasm (3 sources) Melanocytic nevus of trunk; Translations: [Melanocytic nevi of trunk] Onset: 10-25-2023 Episodic Other connective tissue disease (2 sources) Olecranon bursitis 03-16-2019 Episodic Other male genital disorders (2 sources) Impotence 03-16-2019 Chronic Other nutritional; endocrine; and metabolic disorders (2 sources) Obese class I; Translations: [Body mass index (BMI) 30.0-30.9, adult] Onset: 10-25-2023 Chronic Other nutritional; endocrine; and metabolic disorders (1 source) Obesity; Translations: [Other obesity due to excess calories] Onset: 10-25-2023 Chronic Other upper respiratory infections (2 sources) Frontal sinusitis 07-19-2023 Chronic Poisoning by nonmedicinal substances (1 source) Poisoning by bee sting; Translations: [Toxic effect of venom of bees, accidental (unintentional), initial encounter] Onset: 12-25-2023 Episodic Spondylosis; intervertebral disc disorders; other back problems (6 sources) Lumbar radiculopathy; Translations: [Radiculopathy, lumbar region] Onset: 10-25-2023 Episodic Unclassified (4 sources) Patient encounter status 03-17-2019 Unclassified (2 sources) Well adult 07-19-2023 Results Test Name Value Interpretation Reference Range Facility ED Note-Physicianon 01-05-20 ED Note-Physician ED Note-Physician Basic Information Time Seen: Silverio Chen PA-C 12/25/2023 17:20 History of Present Illness Patient is a 63-year-old male that presents today for evaluation after being stung by multiple hornets while doing yard work. Patient states that he was out using a weed [employer] doing trim work when he must of hit a beehive and was swarmed by hornets. He notes that he got stung on his bilateral calfs, behind his neck, and on both of his hands and forearms. He states that he has not been swelling up around the areas. They are somewhat tender and red. He denies any difficulty with breathing or chest pain or wheezing. He states that it happened about an hour before presenting to the ED. He states he is not allergic to anything including bees. He states that he does not have any throat swelling or tongue swelling and is feeling relatively well aside from where he got stung. Review of Systems No other aggravating or relieving factors no other associated symptoms no other prior treatments or complaints. Family: Reviewed and noncontributory Social: lives at home Review of systems negative unless otherwise specified in the HPI. Physical Exam Vitals & Measurements T: 36.6 ?C(Oral) HR: 70(Peripheral) RR: 16 BP: 163/101 SpO2: 94% HT: 182 cm WT: 101.7 kg BMI: 30.7 General: The patient appears well and in no apparent distress. Patient is resting comfortably on cart. Skin: Warm, dry, no pallor noted. Multiple bee stings noted to the posterior aspect of his neck behind his right ear, on his hands, and on his bilateral calves. No swelling. Mild erythema around the area. Head: Normocephalic, atraumatic Neck: No JVD Eye: PERRLA, EOMI ENT: Moist mucus membranes. No swelling to the throat or tongue or lips. Cardiovascular: Regular rate and rhythm. Normal peripheral perfusion Respiratory: CTA bilaterally. No respiratory distress no accessory muscle use no obvious audible wheezing Chest Wall: no deformity Musculoskeletal: normal ROM, no deformity, no swelling GI: Soft no obvious distention. No rebound or rigidity. No guarding. No tenderness. Neurological: A&O moves all extremities equal strength and symmetry Psychiatric: Cooperative and appropriate Medical Decision Making Patient is a 63-year-old male who presents today for evaluation after being stung by multiple hornets while doing yard work about an hour before presenting to the ED. He got stung on his bilateral calfs, behind his neck, and on both of his forearms and hands. He denies any systemic symptoms including chest pain, wheezing, throat swelling. On exam he is afebrile and nontoxic-appearing. SpO2 94% on room air. He is CTA to bilateral lung cabrales with no audible wheezing. No swelling to the throat, tongue, or lips. There are multiple bee stings noted to the posterior aspect of his neck behind his right ear, on his hands, and on his bilateral calves. Left erythema but no swelling around these areas. I provided the patient with a dose of diphenhydramine, famotidine, and prednisone here in the ED. After 2 hours of observation he still doing well and there are no signs of anaphylaxis and he is still CTA bilaterally with no evidence of wheezing or swelling. Will discharge him home with prednisone for 5 days as well as Benadryl to be used for the symptoms. He will follow-up with his PCP to ensure he is getting better within 3 days. Return to ED precautions were reviewed with the patient at length. Assessment/Plan Bee sting reaction (T63.441A: Toxic effect of venom of bees, accidental (unintentional), initial encounter) Orders: diphenhydrAMINE, 50 mg = 2 cap(s), Cap, Oral, Once, Stop date 12/25/23 17:42:00 EDT, STAT, Start date 12/25/23 17:42:00 EDT, 12/25/23 17:42:00 EDT diphenhydrAMINE, 25 mg = 1 cap(s), Oral, TID, PRN for allergy symptoms, # 30 cap(s), Refills(s) 0, Pharmacy: [facility], 182, cm, 12/25/23 17:13:00 EDT, Height/Length Dosing, 101.7, kg, 12/25/23 17:13:00 EDT, Weight Dosing famotidine, 40 mg = 2 tab(s), Tab, Oral, Once, Stop date 12/25/23 17:42:00 EDT, STAT, Start date 12/25/23 17:42:00 EDT, 12/25/23 17:42:00 EDT predniSONE, 60 mg = 3 tab(s), Oral, Daily, X 4 day(s), # 12 tab(s), Refills(s) 0, Pharmacy: [facility], 182, cm, 12/25/23 17:13:00 EDT, Height/Length Dosing, 101.7, kg, 12/25/23 17:13:00 EDT, Weight Dosing predniSONE, 60 mg = 3 tab(s), Tab, Oral, Once, Stop date 12/25/23 17:42:00 EDT, STAT, Start date 12/25/23 17:42:00 EDT, 12/25/23 17:42:00 EDT Medications Administered Given Benadryl 25 mg Cap, 50 mg, Oral famotidine 20 mg Tab, 40 mg, Oral predniSONE 20 mg Tab, 60 mg, Oral Disposition Plan Patient Discharge Condition Stable Discharge Disposition Home Discharge Prescription List Prescriptions diphenhydrAMINE 25 mg Cap, 25 mg= 1 cap(s), Oral, TID, PRN predniSONE 20 mg Tab, 60 mg= 3 tab(s), Oral, Daily Follow-up With When Contact Information Aashish CONWAY In 3 days 12/28/[address] [place], (more content not included)... Normal [facility] Comment on above: Result Comment: Elec tronically Signed By: Silverio Chen PA-C\.br\Date and Time Signed: 12/25/23 21:28 EDT\.br\Electronically Co-Signed By: Jimy Shook DO\.br\Date and Time Co-Signed: 01/05/24 06:43 EDT ED Clinical Summaryon 2023 ED Clinical Summary ED Clinical Summary [address] [address] ED Clinical Summary Person Information Name: BOB LIMA [facility] Age: 63 Years : 1960 Sex: Male Language: Hungarian PCP: Aashish CONWAY DO, FAAFP Marital Status: Visit Id: Visit Reason: Allergic reaction - minor; Insect bite and/or sting; got attacked by yellow jackets outside, burning on hand, head and legs Speciality: Acuity: 4 Enc Type: Emergency Med Service: Emergency Arrival: 12/25/2023 17:07:15 Discharge: 12/25/2023 19:05:54 LOS: 000 01:58 Checkin: 12/25/2023 17:07:15 Checkout: 12/25/2023 19:05:54 Dispo Type: Home (Routine DC) EVENTS: Event Name Event Status Request Date/Time Start Date/Time Complete Date/Time Arrive Complete 12/25/2023 17:07:15 12/25/2023 17:07:15 12/25/2023 17:07:15 Document Home Meds Request 12/25/2023 17:07:15 Triage Complete 12/25/2023 17:07:15 12/25/2023 17:13:28 12/25/2023 17:13:28 Bed Assign Complete 12/25/2023 17:11:45 12/25/2023 17:11:45 12/25/2023 17:11:45 Dr Exam Complete 12/25/2023 17:11:45 12/25/2023 17:20:58 12/25/2023 17:20:58 RN Exam Complete 12/25/2023 17:11:45 12/25/2023 17:39:52 12/25/2023 17:39:52 Registration Complete 12/25/2023 17:20:58 12/25/2023 17:35:58 12/25/2023 17:35:58 Reg Complete Request 12/25/2023 17:35:58 Reg Bed Request Complete 12/25/2023 17:35:58 12/25/2023 17:35:58 12/25/2023 17:35:58 Dr Exam Complete 12/25/2023 17:39:47 12/25/2023 17:39:47 12/25/2023 17:39:47 Registration Request 12/25/2023 17:39:47 Meds Admin Complete 12/25/2023 17:43:11 12/25/2023 17:55:48 Discharge Complete 12/25/2023 18:28:11 12/25/2023 19:05:59 12/25/2023 19:05:59 Transfer Complete 12/25/2023 19:05:59 12/25/2023 19:05:59 12/25/2023 19:05:59 ADDRESS: [address] [place] [address] [address] [place] [id number] PHYS DOC NOTES: MEDICAL INFORMATION: Prescriptions Given: New Medications [facility], [address] [place], [place] [id number], [phone] diphenhydrAMINE (diphenhydrAMINE 25 mg Cap) 1 Capsules By Mouth 3 times a day as needed for allergy symptoms. Refills: 0. predniSONE (predniSONE 20 mg Tab) 3 Tablets By Mouth every day for 4 Days. Refills: 0. Medications to Continue with No Changes Other Medications ascorbic acid (Vitamin C 500 mg Tab) 1 Tablets By Mouth every day. fluticasone nasal (Flonase 0.05 mg/inh nasal spray) 50 Microgram Nasal Inhalation 2 times a day. loratadine (Claritin 10 mg Tab) 1 Tablets By Mouth every day. Refills: 3. montelukast (Singulair 10 mg Tab) 1 Tablets By Mouth every day. Refills: 3. PATIENT EDUCATION INFORMATION: Instructions: Bee, Wasp, or Hornet Sting, Adult Follow up: With: Address: When: Aashish Logan [facility], [facility] [place] [id number] [facility] (1) In 3 days 12/28/2023 DIAGNOSIS: Bee sting reaction Normal [facility] ED Patient Summaryon ED Patient Summary ED Patient Summary [address] [address] Patient Discharge Instructions Person Information Name: BOB LIMA Age: 63 Years Arrival Date: 12/25/2023 17:07:15 Discharge Diagnosis: Bee sting reaction Primary Care Physician: Aashish CONWAY DO, FAAFP Provider Information Primary Provider: Jimy Shook DO [employer] Supervisor:Silverio Chen PA-C. The exam and treatment you received in the Emergency Department were for an urgent problem and are not intended as complete care. It is important that you follow up with a doctor, nurse practitioner, or physician?s assistant store director for ongoing care. If your symptoms become worse or you do not improve as expected and you are unable to reach your usual health care provider, you should return to the Emergency Department. We are available 24 hours a day. BOB LIMA has been given the following list of patient education materials, prescriptions and follow-up instructions: Follow-up Instructions: With: Address: When: Aashish [place], [facility] [place] [address] [facility] (1) In 3 days 12/28/2023 In the event that this physician does not participate in your insurance network, please consult with your insurance company to find a nearby participating provider. Patient Education Materials: Bee, Wasp, or Hornet Sting, Adult A MESSAGE TO ALL PATIENTS REGARDING OPIOIDS PRESCRIPTION OPIOIDS: WHAT YOU NEED TO KNOW Prescription opioids can be used to help relieve eemkvviy-dk-mtyuot pain and are often prescribed following a surgery or injury, or for certain health conditions. These medications can be an important part of the treatment but also come with serious risks. It is important to work with your healthcare provider to make sure you are getting the safest, most effective care. WHAT ARE THE RISKS AND SIDE EFFECTS OF OPIOID USE? Prescription opioids carry serious risks of addiction and overdose, especially with prolonged use. An opioid overdose, often marked by slowed breathing, can cause sudden . The use of prescription opioids can have a number of side effects as well, even when taken as directed: ? Tolerance?meaning you might need to take more of the medication for the same pain relief ? Physical dependence?meaning you have symptoms of withdrawal when a medication is stopped ? Increased sensitivity to pain ? Constipation ? Nausea, vomiting, and dry mouth ? Sleepiness and dizziness ? Confusion ? Depression ? Low levels of testosterone that can result in lower sex drive, energy, and strength ? Itching and sweating RISKS ARE GREATER WITH: ? History of drug misuse, substance use disorder, or overdose ? Mental health conditions (such as depression or anxiety) ? Sleep apnea ? Older age (65 years and older) ? Avoid alcohol while taking prescription opioids. Also, unless specifically advised by your health care provider, medications to avoid include: ? Benzodiazepines (such as Xanax or Valium) ? Muscle relaxants (such as Soma or Flexeril) ? Hypnotics (such as Ambien or Lunesta) ? Other prescription opioids KNOW YOUR OPTIONS Talk to your health care provider about ways to manage your pain that don?t involve prescription opioids. Some of these options may actually work better and have fewer risks and side effects. Options may include: ? Pain relievers such as acetaminophen, ibuprofen, and naproxen ? Some medication that are also used for depression or seizures ? Physical therapy and exercise ? Cognitive behavioral therapy, a psychological, goal-directed approach, in which patients learn how to modify physical, behavioral, and emotional triggers of pain and stress. IF YOU ARE PRESCRIBED OPIOIDS FOR PAIN: ? Never take opioids in greater amounts or more often than prescribed. ? Follow up with your primary health care provider. o Work together to create a plan on how to manage your pain. o Talk about ways to help manage your pain that don?t involve prescription opioids. o Talk about any and all concerns and side effects. ? Help prevent misuse and abuse o Never sell or share prescription opioids. o Never use another person?s prescription opioids. ? Store prescription opioids in a secure place and out of reach of others (this may include visitors, children, friends, and family). ? Safely dispose of unused prescription opioids: Find your community drug take-back program or your pharmacy mail-back program, or flush them down the toilet, following guidance from the Food and Drug Administration (www.fda.gov/Drugs/Resource sForYou). ? Visit www.cdc.gov/drugoverdose to learn about the risks of opioids abuse and overdose. ? If you believe you may be struggling with addiction, tell your health healthcare network pricing consultant and ask for guidance or call [facility] [place] Help (more content not included)... Normal [facility] Physician Referralon 024 Physician Referral [id number] Normal [facility] Family Medicine Office/Clini c Noteon 10-25-2023 Family Medicine Office/Clinic Note Chief Complaint Patient here for 3 month f/u on left lumbar radiculitis. States PT is helping. History of Present Illness Here for follow up Have you had any ER visits or any hospitalizations since last visit? no Are you compliant with your medications and no difficulty affording your medications? yes Do you have side effects from the medication? no Are you compliant with your diet? yes Do you exercise? yes Do you have any of the following symptoms? Chest pain? no Palpitations? no BURDEN/SOB? no Orthopnea? no PND? no Edema? no Have you had any recent cardiopulmonary testing? no Back is back to normal. Reports no radiculopathy nor back pain or weakness or difficulty with bowel and or bladder Allergies are what were kicking my butt, the Singulair helps the [place] is the worst is getting toward the end now and improving, I would take Claritin and he think that would help, the Flonase does not seem to help that much Review of Systems PHQ Score Initial Depression Screen Score: 0 SCORE ROS - Provider Constitutional: no fever, no chills, no sweats, no weakness. Skin: no Jaundice, no rash, no lesions, no petechiae. ENMT: no ear pain, no sore throat, no congestion, no hoarseness. Respiratory: no shortness of breath, no cough, no orthopnea, no wheezing. Cardiovascular: no chest pain, no palpitations, no edema. Gastrointestinal: no nausea, no vomiting, no diarrhea, no GI bleeding.no constipationnoheartburn Genitourinary: no dysuria, no hematuria, no discharge, no pain.nofreq/urgency Musculoskeletal: no back pain, no trauma.nojoint pain Neurologic: no headache, no dizziness, no numbness, no weakness. Psychiatric: no sleeping problems, no irritability, no mood swings/depression. Heme/Lymph: no bleeding tendency, no bruising tendency, no petechiae, no swollen lymph nodes no Allergy/Imunology no seasonal allergies, no food allergies, no recurrent infections, no impaired immunity. Additional ROS info: Except as noted in the above Review of Systems and in the History of Present Illness all other systems have been reviewed and are negative or noncontributory. Physical Exam Vitals & Measurements T: 36.6 ?C(Oral) HR: 74(Peripheral) RR: 18 BP: 120/70 SpO2: 98% HT: 72 in HT: 182 cm WT: 99.8 kg WT: 219.56 lb BMI: 30.13 General: Well developed, well nourished, in no acute distress Mouth: Mucous membranes moist. Normal oropharynx, and posterior pharynx without lesions or exudates. Tongue normal Neck: Neck supple. No masses or palpable cervical nodes. Trachea midline. Thyroid without nodules, masses, tenderness, or enlargement Lungs: Normal respiratory effort and clear to auscultation Cardio: Regular rate and rhythm, normal S1 and S2, no murmur, no rub Abdomen: Soft, non-distended, non-tender. no G/R/S/Masses Musculoskeletal: Pt examined in sitting and standing positions: MS: Scoliosis None Back is fine no radiculopathy nor pain or weakness no radiculopathy SLR's: R Negative L Negative Sciatic Notch Tenderness R Normal L Normal Extremity: No clubbing, cyanosis, edema, or deformity, with normal ROM in both upper and lower bilateral extremities Neurologic: Grossly normal Skin: No rashes, ulcerations, or suspicious lesions Mental Status: Alert and oriented x3. Normal mood and affect Assessment/Plan 1. Sciatica of left side (M54.32: Sciatica, left side) PT really helped, does home exercises: Ordered: methylPREDNISolone, = 1 packet(s), Oral, As Directed, as directed on package labeling, # 21 tab(s), Refills(s) 1, Pharmacy: [facility], 182, cm, 07/19/23 11:42:00 EST, Height/Length Dosing, 102.2, kg, 07/19/23 11:42:00 EST, Weight Dosing 2. Left lumbar radiculitis (M54.16: Radiculopathy, lumbar region) see 1 Ordered: methylPREDNISolone, = 1 packet(s), Oral, As Directed, as directed on package labeling, # 21 tab(s), Refills(s) 1, Pharmacy: [facility], 182, cm, 07/19/23 11:42:00 EST, Height/Length Dosing, 102.2, kg, 07/19/23 11:42:00 EST, Weight Dosing 3. BMI 30.0-30.9,adult, (Z68.30: Body mass index [BMI] 30.0-30.9, adult)Body mass index [BMI] 30.0-30.9, adult The standard range for ages 18 and older is >=18.5 and < 25 kg/m2. Your BMI today was above this range, this falls in the overweight to obese category and there are medical benefits to weight loss. We can offer counselling, referral, and/or medical support in addressing this problem. Your BMI and weight management will be followed at subsequent visits. 4. Class 1 obesity due to excess calories with serious comorbidity and body mass index (BMI) of 30.0 to 30.9 in adult (E66.09: Other obesity due to excess calories) The standard range for ages 18 and older is >=18.5 and < 25 kg/m2. Your BMI today was above this range, this falls in the overweight to obese category and there are medical benefits to weight loss. We can offer counselling, referral, and/or medical support in addressing this problem. Your BMI and weight manageme (more content not included)... Normal [facility] Comment on above: Result Comment: Elec tronically Signed By: MAN LEAL FAAFP, Aashish Vasquez\.antwon\Date and Time Signed: 10/25/23 13:25 EDT Patient Educationon 10-25-19 Patient Education Immunology Allergies, Adult An allergy means that your body reacts to something that bothers it (allergen). This can happen from something that you eat, breathe in, or touch. Allergies often affect the nose, eyes, skin, and stomach. They can be mild, moderate, or very bad (severe). An allergy cannot spread from person to person. They can happen at any age. Sometimes, people outgrow them. What are the causes? ? Outdoor things, such as pollen, car fumes, and mold. ? Indoor things, such as dust, smoke, mold, and pets. ? Foods. ? Medicines. ? Things that bother your skin, such as perfume and bug bites. What increases the risk? ? Having family members with allergies or asthma. What are the signs or symptoms? Symptoms depend on how bad your allergy is. Mild to moderate symptoms ? Runny nose, stuffy nose, or sneezing. ? Itchy mouth, ears, or throat. ? A feeling of mucus dripping down the back of your throat. ? Sore throat. ? Eyes that are itchy, red, watery, or puffy. ? A skin rash, or red, swollen areas of skin (hives). ? Stomach cramps or bloating. Severe symptoms Very bad allergies to food, medicine, or bug bites may cause a very bad allergy reaction (anaphylaxis). This can be life-threatening. Symptoms include: ? A red face. ? Wheezing or coughing. ? Swollen lips, tongue, or mouth. ? Tight or swollen throat. ? Chest pain or tightness, or a fast heartbeat. ? Trouble breathing or shortness of breath. ? Pain in your belly (abdomen), vomiting, or watery poop (diarrhea). ? Feeling dizzy or fainting. How is this treated? Treatment for this condition depends on your symptoms. Treatment may include: ? Cold, wet cloths for itching and swelling. ? Eye drops, nose sprays, or skin creams. ? Washing out your nose each day. ? A humidifier. ? Medicines. ? A change to the foods you eat. ? Being exposed again and again to tiny amounts of allergens. This helps your body get used to them. You might have: ? Allergy shots. ? Very small amounts of allergen put under your tongue. ? An emergency shot (auto-injector pen) if you have a very bad allergy reaction. ? This is a medicine with a needle. You can put it into your skin by yourself. ? Your doctor will teach you how to use it. Follow these instructions at home: Medicines ? Take or apply bwmy-fdh-tgldqvm and prescription medicines only as told by your doctor. ? If you are at risk for a very bad allergy reaction, keep an auto-injector pen with you all the time. Eating and drinking ? Follow instructions from your doctor about what to eat and drink. ? Drink enough fluid to keep your pee (urine) pale yellow. General instructions ? If you have ever had a very bad allergy reaction, wear a medical alert bracelet or necklace. ? Stay away from things that you are allergic to. ? Keep all follow-up visits as told by your doctor. This is important. Contact a doctor if: ? Your symptoms do not get better with treatment. Get help right away if: ? You have symptoms of a very bad allergy reaction. These include: ? A swollen mouth, tongue, or throat. ? Pain or tightness in your chest. ? Trouble breathing. ? Being short of breath. ? Dizziness. ? Fainting. ? Very bad pain in your belly. ? Vomiting. ? Watery poop. These symptoms may be an emergency. Do not wait to see if the symptoms will go away. Get medical help right away. Call your local emergency services (911 in the [place] Do not drive yourself to the hospital. Summary ? Take or apply uqhy-xia-lgayjmk and prescription medicines only as told by your doctor. ? Stay away from things you are allergic to. ? If you are at risk for a very bad allergy reaction, carry an auto-injector pen all the time. ? Wear a medical alert bracelet or necklace. ? Very bad allergy reactions can be life-threatening. Get help right away. This information is not intended to replace advice given to you by your health care provider. Make sure you discuss any questions you have with your health care provider. Document Revised: 03/13/2020 Document Reviewed: 03/13/2020 Elsevier Patient Education ? 2022 [employer] Orthopedics Back Exercises These exercises help to make your trunk and back strong. They also help to keep the lower back flexible. Doing these exercises can help to prevent or lessen pain in your lower back. ? If you have back pain, try to do these exercises 2?3 times each day or as told by your doctor. ? As you get better, do the exercises once each day. Repeat the exercises more often as told by your doctor. ? To stop back pain from coming back, do the exercises once each day, or as told by your doctor. Do exercises exactly as told by your doctor. Stop right away if you feel sudden pain or your pain gets worse. Exercises Single knee to chest Do these steps 3?5 times in a row for (more content not included)... [facility] PT - Assessmentson 4 PT - Assessments [id number]#1.00TIFF [facility] PT - Home Exercise Programon 08-19-2023 PT - Home Exercise Program [id number]#1.00TIFF [facility] PT - Home Exercise Programon 08-10-2023 PT - Home Exercise Program [id number]#1.00TIFF [facility] PT - Home Exercise Programon 07-29-2023 PT - Home Exercise Program [id number]#1.00TIFF [facility] Consent for Treatmenton Consent for Treatment [id number]#1.00TIFF [facility] PT - Assessmentson PT - Assessments [id number]#1.00TIFF [facility] PT - Consentson 07-22-2023 PT - Consents [id number]#1.00TIFF [facility] PT - Home Exercise Programon 07-22-2023 PT - Home Exercise Program [id number]#1.00TIFF Kirt Lanier [facility] Ambulatory Visit Summaryon 0 07-19-2023 Ambulatory Visit Summary BOB LIMA :1960 Visit Date:07/19/2023 Ambulatory Visit Instructions Your Diagnosis Frontal sinusitis Other obesity Adult BMI 30.0-30.9 kg/sq m Sciatica of left side Acute bronchitis due to other specified organisms Screening PSA (prostate specific antigen) Well adult on routine health check Left lumbar radiculitis Your Care Team Attending Physician - Aashish CONWAY DO, FAAFP Primary Care Physician - Aashish CONWAY DO, FAAFP This Is Your Medications List amoxicillin-clavulanate (Augmentin 875 mg oral tablet) ascorbic acid (Vitamin C 500 mg Tab) fluticasone nasal (Flonase 0.05 mg/inh nasal spray) loratadine methylPREDNISolone (Medrol 4 mg Tab) montelukast (Singulair 10 mg Tab) Procedures Performed Colonoscopy (03/25/2018), right bunionectomy, osteotomy great toe, capsulotomies (03/24/2012), History of repair of inguinal hernia, History of repair of umbilical hernia, [place] tooth. Discharge Vitals Temperature (Temporal Artery) 36.7 ?C Heart Rate (Peripheral) 74 Respiratory Rate 18 Blood Pressure 134/82 Height 182 cm Height 72 in Weight 102.2 kg Weight 224.84 lb BMI 30.85 What to do next You Need to Schedule the Following Appointments Follow Up with Aashish CONWAY DO, FAAFP, JULIUS, PED When: In 3 months Where: [address] [facility] [place] [address]- Medications What How Much When Why Instructions New amoxicillin-clavulanate (Augmentin 875 mg oral tablet) 1 Tablets By Mouth Every 12 hours Frontal sinusitis Duration: 10 Days Pickup at [facility] 1985 New methylPREDNISolone (Medrol 4 mg Tab) 1 Packets By Mouth As Directed Left lumbar radiculitis Sciatica of left side Refills: 1 as directed on package labeling Pickup at [facility] 1985 Unchanged ascorbic acid (Vitamin C 500 mg Tab) 1 Tablets By Mouth Every day Unchanged fluticasone nasal (Flonase 0.05 mg/ inh nasal spray) 50 Microgram Nasal Inhalation 2 times a day Unchanged loratadine 10 Milligram By Mouth Every day Unchanged montelukast (Singulair 10 mg Tab) 1 Tablets By Mouth Every day Pharmacy Information [facility] 1986: [address] [place], [place] [id number] [phone] Allergies No Known Allergies Problems Ongoing - Any problem that you are currently receiving treatment for. Acute bronchitis due to other specified organisms Bunion of great toe ED (erectile dysfunction) Environmental allergies Fasting hyperglycemia Frontal sinusitis Hammertoe Left lumbar radiculitis Olecranon bursitis Preventative health care Sciatica of left side Screening PSA (prostate specific antigen) Well adult on routine health check Patient Survey You may receive a survey via text or e-mail asking about your office visit. Please share your experience with us by completing your survey. We appreciate your feedback and thank you for choosing us for your care. Education Materials Back Exercises These exercises help to make your trunk and back strong. They also help to keep the lower back flexible. Doing these exercises can help to prevent or lessen pain in your lower back. ? If you have back pain, try to do these exercises 2?3 times each day or as told by your doctor. ? As you get better, do the exercises once each day. Repeat the exercises more often as told by your doctor. ? To stop back pain from coming back, do the exercises once each day, or as told by your doctor. Do exercises exactly as told by your doctor. Stop right away if you feel sudden pain or your pain gets worse. Exercises Single knee to chest Do these steps 3?5 times in a row for each le. Lie on your back on a firm bed or the floor with your legs stretched out. 2. Bring one knee to your chest. 3. Grab your knee or thigh with both hands and hold it in place. 4. Pull on your knee until you feel a gentle stretch in your lower back or butt. 5. Keep doing the stretch for 10?30 seconds. 6. Slowly let go of your leg and straighten it. Pelvic tilt Do these steps 5?10 times in a row: 1. Lie on your back on a firm bed or the floor with your legs stretched out. 2. Bend your knees so they point up to the ceiling. Your feet should be flat on the floor. 3. Tighten your lower belly (abdomen) muscles to press your lower back against the floor. This will make your tailbone point up to the ceiling instead of pointing down to your feet or the floor. 4. Stay in this position for 5?10 seconds while you gently tighten your muscles and breathe evenly. Cat?cow Do these steps until your lower back bends more easily: 1. Get on your hands and knees on a firm bed or the floor. Keep your hands under your shoulders, and keep your knees under your hips. You may put padding under your knees. 2. Let your head hang down toward your chest. Tighten (contract) the muscles in your belly. Point your tailbone toward (more content not included)... Normal [facility] BMPon 07-19-2023 Anion gap [Moles/Vol] 13 mmol/L Normal 6-16 [facility] Comment on above: Performed By: #### 2 897540, [id number], 7454650, 5997090, 7311832, 75370804, 009584303 ####[facility] [address] [place] [address] Calcium [Mass/Vol] 9.6 mg/dL Normal 8.9-11.1 [facility] Comment on above: Performed By: #### 2 274500, 28948301, 3963914, 6267009, 2753113, 52399267, 656763817 ####[facility] [address] [place] [address] Chloride [Moles/Vol] 102 mmol/L Normal 101-111 [facility] Comment on above: Performed By: #### 2 447244, 43517407, 3211311, 8834763, 1368521, 15859818, 163482490 ####[facility] [address] [place] [address] CO2 [Moles/Vol] 28 mmol/L Normal 21-31 [facility] Comment on above: Performed By: #### 2 707933, 92545325, 5966641, 5567041, 9325522, 77255316, 838177410 ####[facility] [address] [place] [address] Creatinine [Mass/Vol] 1.1 mg/dL Normal 0.5-1.3 [facility] Comment on above: Performed By: #### 2 910023, 48190993, 9857456, 8133818, 4257978, 71061102, 957040017 ####[facility] [address] [place] [address] Glucose [Mass/Vol] 83 mg/dL Normal 55-199 [facility] Comment on above: Performed By: #### 2 666960, 47118152, 2372845, 9497747, 9195420, 70332626, 904103694 ####[facility] [address] [place] [address] Potassium [Moles/Vol] 4.3 mmol/L Normal 3.5-5.3 [facility] Comment on above: Performed By: #### 2 995560, 44419820, 4414581, 7611485, 9832817, 92804673, 012630273 ####[facility] [address] [place] [address] Sodium [Moles/Vol] 139 mmol/L Normal 135-145 [facility] Comment on above: Performed By: #### 2 093923, 12501313, 7522738, 8652549, 4108265, 73546515, 749575841 ####[facility] [address] [place] [address] Urea nitrogen [Mass/Vol] 15 mg/dL Normal 5-21 [facility] Comment on above: Performed By: #### 2 467428, 13014435, 7440596, 2472083, 7429346, 29734426, 784953479 ####[facility] [address] [place] [address] Urea nitrogen/Creatini ne [Mass ratio] 14 No Units Normal 10-20 [facility] Comment on above: Performed By: #### 2 695542, 93254937, 7586092, 3304981, 3376989, 99900600, 790314670 ####[address] [place] [address] CBC w/ Auto Diffon 4 Basophils/100 WBC (Bld) 0.5 % Normal 0.0-2.0 [facility] Comment on above: Performed By: #### 2 876343, 59266082, 1821017, 4590473, 2985882, 36231566, 616620987 ####[address] [address] Basophils/Leukocy les Auto (Bld) [Pure # fraction] 0.0 E9/L Normal 0.0-0.2 [facility] Comment on above: Performed By: #### 2 121076, 85196524, 9115033, 7208832, 7683739, 99795475, 855740065 ####[address] [address] Eosinophils (Bld) [#/Vol] 0.2 E9/L Normal 0.0-0.5 [facility] Comment on above: Performed By: #### 2 298209, 63846170, 2171180, 7481225, 5046011, 64356121, 424605772 ####[address] [address] Eosinophils/100 WBC (Bld) 2.4 % Normal 0.0-8.0 [facility] Comment on above: Performed By: #### 2 612863, 35725532, 6791717, 2734561, 2786828, 80258303, 993820001 ####[address] [address] Erythrocyte distribution width (RBC) [Ratio] 13.4 % Normal 10.9-14.2 [facility] Comment on above: Performed By: #### 2 857565, 83906699, 0517929, 0236930, 7710823, 20805186, 375736434 ####[facility] [address] [place] [address] Hematocrit (Bld) [Volume fraction] 44.0 % Normal 37.7-49.0 [facility] Comment on above: Performed By: #### 2 880622, 58671790, 3063082, 5860225, 7273787, 45852486, 671068915 ####[address] [place] [address] Hemoglobin (Bld) [Mass/Vol] 14.7 g/dL Normal 13.5-17.5 [facility] Comment on above: Performed By: #### 2 267806, 82967411, 7558325, 9250352, 5362162, 91777511, 368898754 ####[address] [address] Lymphocytes (Bld) [#/Vol] 2.2 E9/L Normal 1.0-4.0 [facility] Comment on above: Performed By: #### 2 278889, 16463764, 8361021, 5783107, 2793624, 41674585, 270384598 ####[address] [address] Lymphocytes/100 WBC (Bld) 26.5 % Normal 14.0-50.0 [facility] Comment on above: Performed By: #### 2 574112, 18834044, 8291460, 7435511, 3767362, 34672842, 208205476 ####[address] [place] [address] MCH (RBC) [Entitic mass] 30.0 pg Normal 27.0-34.0 [facility] Comment on above: Performed By: #### 2 628462, 20544694, 5505680, 5952923, 0377769, 59420888, 478821171 ####[address] [address] MCHC (RBC) [Mass/Vol] 33.4 g/dL Normal 31.4-36.0 [facility] Comment on above: Performed By: #### 2 538096, 13532446, 7878789, 9788883, 2986450, 53737341, 536786471 ####[facility] [address] [place] [address] MCV (RBC) [Entitic vol] 89.7 fL Normal 80.0-100.0 [facility] Comment on above: Performed By: #### 2 278925, 38078171, 3228773, 7307360, 3337071, 97331406, 377942247 ####[address] [place] [address] Monocytes (Bld) [#/Vol] 0.7 E9/L Normal 0.2-1.0 [facility] Comment on above: Performed By: #### 2 681461, 26287036, 2694129, 6935599, 1316958, 39873594, 143495588 ####[address] [address] Neutrophils (Bld) [#/Vol] 5.1 E9/L Normal 2.0-7.5 [facility] Comment on above: Performed By: #### 2 511678, 33569788, 0960967, 0324764, 6983384, 44226280, 784400642 ####[address] [address] Neutrophils/100 WBC (Bld) 62.4 % Normal 36.0-75.0 [facility] Comment on above: Performed By: #### 2 255143, 20461842, 7444197, 4967709, 0400298, 31669055, 972297773 ####[address] [place] [address] Platelet 256.0 E9/L Normal 150.0-500.0 [facility] Comment on above: Performed By: #### 2 151848, 70534540, 2225708, 1083683, 7594571, 91854561, 217569514 ####[facility] [address] [place] [address] Platelet mean volume (Bld) [Entitic vol] 8.1 fL Normal 6.4-10.8 [facility] Comment on above: Performed By: #### 2 886036, 17178682, 9898784, 2088883, 3796101, 58886003, 392770035 ####[facility] [address] [place] [address] RBC (Bld) [#/Vol] 4.9 E12/L Normal 4.3-5.9 [facility] Comment on above: Performed By: #### 2 931021, 25320942, 0258529, 0603529, 9886107, 32094886, 036171418 ####[address] [place] [address] WBC corrected for nucl RBC Auto (Bld) [#/Vol] 8.2 E9/L Normal 4.0-11.0 [facility] Comment on above: Performed By: #### 2 939300, 01615987, 1242785, 3396368, 5621321, 04384075, 930934746 ####[facility] [address] [place] [address] Consent for Treatmenton Consent for Treatment [id number]#1.00TIFF Normal [facility] Family Medicine Office/Clini c Noteon 07-19-2023 Family Medicine Office/Clinic Note Chief Complaint Cold symptoms. mucus, head congestion, occasional cough, no fever History of Present Illness Sinus congestion with little fever on and off for over 2 weeks, I think it is a sinus infection more so than a bronchitis. Denies shortness of breath chest pain or pressure. Spent a long time since I have blood work I am okay with getting it if you want to order it for me. The once know we had I was working my snowblower and I bent the wrong way I had pain in my left lower back down to my buttock. I pulled every Wednesday and have not been able to bowl since then, the last 2 to 3 weeks whenever I go to throw the ball to get excruciating pain in my left buttock. I went to the wellness center which is essentially chiropractic and they did x-rays and worked on me and said nothing significantly was wrong and has really not helped. Denies any difficulty with bowel or bladder and denies any annie weakness. Right and left straight leg raise his leg to pain in his left PSIS and into his upper buttock. Review of Systems PHQ Score Initial Depression Screen Score: 0 SCORE ROS - Provider Constitutional: no fever, no chills, no sweats, no weakness. Skin: no Jaundice, no rash, no lesions, no petechiae. ENMT: no ear pain, no sore throat, no congestion, no hoarseness. Respiratory: no shortness of breath, no cough, no orthopnea, no wheezing. Cardiovascular: no chest pain, no palpitations, no edema. Gastrointestinal: no nausea, no vomiting, no diarrhea, no GI bleeding.no constipationnoheartburn Genitourinary: no dysuria, no hematuria, no discharge, no pain.nofreq/urgency Musculoskeletal: yes back pain, no trauma.nojoint pain Neurologic: no headache, no dizziness, no numbness, no weakness. Psychiatric: no sleeping problems, no irritability, no mood swings/depression. Heme/Lymph: no bleeding tendency, no bruising tendency, no petechiae, no swollen lymph nodes no Allergy/Imunology no seasonal allergies, no food allergies, no recurrent infections, no impaired immunity. Additional ROS info: Except as noted in the above Review of Systems and in the History of Present Illness all other systems have been reviewed and are negative or noncontributory. Physical Exam Vitals & Measurements T: 36.7 ?C(Temporal Artery) HR: 74(Peripheral) RR: 18 BP: 134/82 SpO2: 98% HT: 72 in HT: 182 cm WT: 102.2 kg WT: 224.84 lb BMI: 30.85 General: Well developed, well nourished, in no acute distress Mouth: Mucous membranes moist. Normal oropharynx, and posterior pharynx without lesions or exudates. Tongue normal Neck: Neck supple. No masses or palpable cervical nodes. Trachea midline. Thyroid without nodules, masses, tenderness, or enlargement Lungs: Normal respiratory effort and clear to auscultation Cardio: Regular rate and rhythm, normal S1 and S2, no murmur, no rub Abdomen: Soft, non-distended, non-tender. no G/R/S/Masses Musculoskeletal: Pt examined in sitting and standing positions: MS: Scoliosis approximately 15 to 20 degrees lower thoracic lumbar spine apex right x 2: Significant muscle spasm and prominence of the left upper gluteal region compared to the right gluteal region which was soft. F/E: Normal 90 active flexion and 210* active extension SB: 25* R and L DTR's: Normal Patellar Reflexes Toe and Heal Walking: Normal SLR's: R Negative L Negative Sciatic Notch Tenderness R Normal L Normal Extremity: No clubbing, cyanosis, edema, or deformity, with normal ROM in both upper and lower bilateral extremities Neurologic: Grossly normal Skin: No rashes, ulcerations, or suspicious lesions Mental Status: Alert and oriented x3. Normal mood and affect Assessment/Plan 1. Frontal sinusitis (J32.1: Chronic frontal sinusitis) Augmentin 875mg po bid #20, Flonase 2 elations per nostril daily, has at home. Ordered: amoxicillin-clavulanate, = 1 tab(s), Oral, q12hr, X 10 day(s), # 20 tab(s), Refills(s) 0, Pharmacy: [facility], 182, cm, 07/19/23 11:42:00 EST, Height/Length Dosing, 102.2, kg, 07/19/23 11:42:00 EST, Weight Dosing 2. Other obesity (E66.8: Other obesity) diet and exercise with BMI goal of 25 Ordered: Basic Metabolic Panel CBC w/ Auto Diff Hepatic Function Panel Lipid Panel PSA Screen, Total 3. Adult BMI 30.0-30.9 kg/sq m (Z68.30: Body mass index [BMI] 30.0-30.9, adult) The standard range for ages 18 and older is >=18.5 and < 25 kg/m2. Your BMI today was above this range, this falls in the overweight to obese category and there are medical benefits to weight loss. We can offer counselling, referral, and/or medical support in addressing this problem. Your BMI and weight management will be followed at subsequent visits. Ordered: Basic Metabolic Panel CBC w/ Auto Diff Hepatic Function Panel Lipid Panel PSA Screen, Total 4. Sciatica of left side (M54.32: Sciatica, left side) Referral to PT along with home back exercises and Medrol Ordered: methylPREDNISolone, = 1 packet(s), Oral, As Directed, as di (more content not included)... Normal [facility] Comment on above: Result Comment: Elec tronically Signed By: MAN LEAL FAAFP, Aashish Vasquez\chris\Date and Time Signed: 07/19/23 12:47 EST Hep Func Panelon 07-19-2023 Albumin [Mass/Vol] 4.3 g/dL Normal 3.3-5.0 [facility] Comment on above: Performed By: #### 2 801865, 56679540, 3459687, 5185306, 8505388, 31735111, 709567826 ####[facility] [address] [place] [address] Albumin/Globulin (S) [Mass conc ratio] 1.5 Normal 1.1-2.2 [facility] Comment on above: Performed By: #### 2 937026, 64871057, 7529807, 8045221, 2229308, 82301949, 747694535 ####[facility] [address] [place] [address] ALP [Catalytic activity/Vol] 54 Int._Unit/L Normal 21-98 [facility] Comment on above: Performed By: #### 2 394746, 97810685, 8435918, 1532066, 1106552, 47510736, 373508757 ####[facility] [address] [place] [address] ALT No additional P-5'-P [Catalytic activity/Vol] 27 Int._Unit/L Normal 6-46 [facility] Comment on above: Performed By: #### 2 179840, 87637857, 5768727, 1126427, 8461105, 48376619, 160127124 ####[facility] [address] [place] [address] AST [Catalytic activity/Vol] 26 Int._Unit/L Normal 5-43 [facility] Comment on above: Performed By: #### 2 138126, 67940001, 8566779, 0346357, 0448243, 29237933, 051209413 ####[facility] [address] [place] [address] Bilirubin [Mass/Vol] 0.6 mg/dL Normal 0.0-1.1 [facility] Comment on above: Performed By: #### 2 896987, 94913099, 3452766, 7891377, 3472483, 96115000, 460158556 ####[facility] [address] [place] [address] Bilirubin.direct [Mass/Vol] 0.1 mg/dL Normal 0.0-0.4 [facility] Comment on above: Performed By: #### 2 565254, 27180145, 2156908, 0933128, 4616515, [id number], [id number] ####[facility] [address] [place] [address] Bilirubin.indirec t [Mass or moles/Vol] 0.5 mg/dL Normal 0.1-0.9 [facility] Comment on above: Performed By: #### 2 [id number], [id number], 2353094, 9830459, 8804898, [id number], [id number] ####[facility] [address] [place] [address] Globulin (S) [Mass/Vol] 2.9 g/dL Normal 1.4-4.0 [facility] Comment on above: Performed By: #### 2 634321, [id number], 9845103, 5608954, 3469830, [id number], [id number] ####[facility] [address] [place] [address] Protein [Mass/Vol] 7.2 g/dL Normal 6.0-7.8 [facility] Comment on above: Performed By: #### 2 103073, [id number], 8029050, 7140681, 5653881, [id number], [id number] ####[facility] [address] [place] [address] TonG7ntz 07-19-2023 HbA1c (Bld) [Mass fraction] 5.7 % Normal <=5.9 [facility] Comment on above: Performed By: #### 2 [id number], [id number], 1919566, 9584022, 7839048, [id number], [id number] ####[facility] [address] [facility] [place] [address] Lipid Panelon 07-19-2023 Cholesterol [Mass/Vol] 166 mg/dL Normal 120-200 [facility] Comment on above: Performed By: #### 2 376623, [id number], 3865992, 8969529, 9284992, [id number], [id number] ####[facility] [address] [place] [address] Cholesterol in HDL [Mass/Vol] 34 mg/dL Invalid Interpretation Code [facility] Comment on above: Result Comment: '>= 60 LOW RISK' '<= 40 HIGH RISK' Performed By: #### 2 706006, [id number], 4313245, 0412591, 7827856, [id number], [id number] ####[facility] [address] [place] [address] Cholesterol in LDL [Mass/Vol] 87 mg/dL Normal <=129 [facility] Comment on above: Performed By: #### 2 060651, [id number], 9874525, 9985437, 3899556, [id number], [id number] ####[facility] [address] [place] [address] Cholesterol in VLDL [Mass/Vol] 51 mg/dL High 7-40 [facility] Comment on above: Performed By: #### 2 633662, [id number], 3199705, 1169433, 6972236, 38088367, [id number] ####[facility] [address] [place] [address] Triglyceride [Mass/Vol] 254 mg/dL High <=149 [facility] Comment on above: Performed By: #### 2 280008, [id number], 3048345, 0684994, 0240946, 04641437, [id number] ####[facility] [address] [place] [address] PSA Screen, Totalon 07-19-19 24 Prostate specific Ag [Mass/Vol] 0.5 ng/mL Normal 0.1-3.5 [facility] Comment on above: Result Comment: The concentration of PSA determined by different manufacturers can vary due to differences in assay methods and reagent specificity. Values obtained from different assay methods cannot be used interchangeably. The methodology used for this result was chemiluminescence using [employer]'s Access [employer] PSA reagent. Performed By: #### 2 212646, [id number], 5931466, 0028966, 1245352, [id number], [id number] ####[facility] [address] [place] [address] Patient Educationon 07-19-19 24 Patient Education Orthopedics Back Exercises These exercises help to make your trunk and back strong. They also help to keep the lower back flexible. Doing these exercises can help to prevent or lessen pain in your lower back. ? If you have back pain, try to do these exercises 2?3 times each day or as told by your doctor. ? As you get better, do the exercises once each day. Repeat the exercises more often as told by your doctor. ? To stop back pain from coming back, do the exercises once each day, or as told by your doctor. Do exercises exactly as told by your doctor. Stop right away if you feel sudden pain or your pain gets worse. Exercises Single knee to chest Do these steps 3?5 times in a row for each le. Lie on your back on a firm bed or the floor with your legs stretched out. 2. Bring one knee to your chest. 3. Grab your knee or thigh with both hands and hold it in place. 4. Pull on your knee until you feel a gentle stretch in your lower back or butt. 5. Keep doing the stretch for 10?30 seconds. 6. Slowly let go of your leg and straighten it. Pelvic tilt Do these steps 5?10 times in a row: 1. Lie on your back on a firm bed or the floor with your legs stretched out. 2. Bend your knees so they point up to the ceiling. Your feet should be flat on the floor. 3. Tighten your lower belly (abdomen) muscles to press your lower back against the floor. This will make your tailbone point up to the ceiling instead of pointing down to your feet or the floor. 4. Stay in this position for 5?10 seconds while you gently tighten your muscles and breathe evenly. Cat?cow Do these steps until your lower back bends more easily: 1. Get on your hands and knees on a firm bed or the floor. Keep your hands under your shoulders, and keep your knees under your hips. You may put padding under your knees. 2. Let your head hang down toward your chest. Tighten (contract) the muscles in your belly. Point your tailbone toward the floor so your lower back becomes rounded like the back of a cat. 3. Stay in this position for 5 seconds. 4. Slowly lift your head. Let the muscles of your belly relax. Point your tailbone up toward the ceiling so your back forms a sagging arch like the back of a cow. 5. Stay in this position for 5 seconds. Press-ups Do these steps 5?10 times in a row: 1. Lie on your belly (face-down) on a firm bed or the floor. 2. Place your hands near your head, about shoulder-width apart. 3. While you keep your back relaxed and keep your hips on the floor, slowly straighten your arms to raise the top half of your body and lift your shoulders. Do not use your back muscles. You may change where you place your hands to make yourself more comfortable. 4. Stay in this position for 5 seconds. Keep your back relaxed. 5. Slowly return to lying flat on the floor. Bridges Do these steps 10 times in a row: 1. Lie on your back on a firm bed or the floor. 2. Bend your knees so they point up to the ceiling. Your feet should be flat on the floor. Your arms should be flat at your sides, next to your body. 3. Tighten your butt muscles and lift your butt off the floor until your waist is almost as high as your knees. If you do not feel the muscles working in your butt and the back of your thighs, slide your feet 1?2 inches (2.5?5 cm) farther away from your butt. 4. Stay in this position for 3?5 seconds. 5. Slowly lower your butt to the floor, and let your butt muscles relax. If this exercise is too easy, try doing it with your arms crossed over your chest. Belly crunches Do these steps 5?10 times in a row: 1. Lie on your back on a firm bed or the floor with your legs stretched out. 2. Bend your knees so they point up to the ceiling. Your feet should be flat on the floor. 3. Cross your arms over your chest. 4. Tip your chin a little bit toward your chest, but do not bend your neck. 5. Tighten your belly muscles and slowly raise your chest just enough to lift your shoulder blades a tiny bit off the floor. Avoid raising your body higher than that because it can put too much stress on your lower back. 6. Slowly lower your chest and your head to the floor. Back lifts Do these steps 5?10 times in a row: 1. Lie on your belly (face-down) with your arms at your sides, and rest your forehead on the floor. 2. Tighten the muscles in your legs and your butt. 3. Slowly lift your chest off the floor while you keep your hips on the floor. Keep the back of your head in line with the curve in your back. Look at the floor while you do this. 4. Stay in this position for 3?5 seconds. 5. Slowly lower your chest and your face to the floor. Contact a doctor if: ? Your back pain gets a lot worse when you do an exercise. ? Your back pain does not get better within 2 hours after you exercise. If you have any of these problems, stop doing the exercise (more content not included)... Normal [facility] eGFRon 07-19-2023 eGFR 76 mL/min/1.73 m2 Normal >=59 [facility] Comment on above: Order Comment: Order added by Discern Expert. Performed By: #### 2 [id number], [id number], 4716101, 6764920, 8066644, 63701305, [id number] ####[facility] [address] [place] [address] Vital Signs Date Time Vital Sign Value Performing Clinician Rachel kaiser 12-25-2023 17:11-0400 Body temperature 97.88 [degF] Jimy Shook [facility] 12-25-2023 17:11-0400 Diastolic blood pressure 101 mm[Hg] Jimy Shook [facility] 12-25-2023 17:11-0400 Heart rate 70 /min Jimy Shook [facility] 12-25-2023 17:11-0400 Respiratory rate 16 /min Jimy Shook [facility] 12-25-2023 17:11-0400 SaO2% (BldA) [Mass fraction] 94 % Jimy Shook [facility] 12-25-2023 17:11-0400 Systolic blood pressure 163 mm[Hg] Jimy Shook [facility] 10-25-2023 12:50-0400 Blood Pressure Location Aashish CEELE [facility] 10-25-2023 12:50-0400 Body temperature 97.88 [degF] Aashish KAPLE [facility] 10-25-2023 12:50-0400 Diastolic blood pressure 70 mm[Hg] Aashish KAPLE [facility] 10-25-2023 12:50-0400 Heart rate 74 /min Aashish KAPLE [facility] 10-25-2023 12:50-0400 Respiratory rate 18 /min Aashish KAPLE [facility] 10-25-2023 12:50-0400 SaO2% (BldA) [Mass fraction] 98 % Aashish CONWAY [facility] 10-25-2023 12:50-0400 Systolic blood pressure 120 mm[Hg] Aashish CONWAY [facility] Encounters Encounter Date Encounter Type Care Provider Facility Start: 12-25-2023 End: 12-25-2023 Emergency department patient visit Jimy Michael Shook [facility] Start: 12-21-2023 End: 12-21-2023 ambulatory JARRELL HEBERT Not Available Start: 10-25-2023 End: 10-25-2023 ambulatory Aashish CONWAY Facility:[facility] Start: 10-25-2023 End: 10-25-2023 Patient encounter procedure Aashish CONWAY [facility] Start: 07-22-2023 End: 11-14-2023 ambulatory Aashish CONWAY [place] [place]: 07-19-2023 End: 07-19-2023 ambulatory Aashish CONWAY [place] Start: 07-19-2023 End: 07-19-2023 ambulatory Aashish CONWAY Facility:[facility] Start: 05-13-2023 End: 05-13-2023 ambulatory CLEMENTINE PAGE Facility:[facility] Procedures Date Procedure Procedure Detail Performing Clinician Start: 03-25-2018 Colonoscopy Aashish Quiñones Start: 03-24-2012 right bunionectomy, osteotomy great toe, capsulotomies Aashish CONWAY History of repair of inguinal hernia Aashish CONWAY Comment on above: LEFT History of repair of umbilical hernia Aashish CONWAY Structure of wisdom tooth (body structure) Aashish CONWAY Immunizations Immunization Date Immunization Notes Care Provider Fa cility 08-06-2023 zoster vaccine recombinant Aashish CONWAY [facility] 05-01-2023 zoster vaccine recombinant Aashish CONWAY [facility] 08-24-2020 SARS-CoV-2 (COVID-19 ) mRNA-1273 vaccine Aashish CONWAY [facility] 07-27-2020 SARS-CoV-2 (COVID-19 ) mRNA-1273 vaccine Aashish CONWAY [facility] 03-06-2014 influenza virus vaccine, unspecified formulation Aashish CONWAY [facility] 12-01-2007 tetanus toxoid, reduced diphtheria toxoid, and acellular pertussis vaccine, adsorbed Aashish CNOWAY [facility] NEGATED: Highlighted row has not occurred!05-26-2019 influenza virus vaccine, live, attenuated, for intranasal use Aashish CONWAY [facility] NEGATED: Highlighted row has not occurred!03-17-2019 influenza virus vaccine, unspecified formulation Aashish CONWAY [facility] Payers Date Payer Category Payer Medicaid [id number] 1960 Unknown [id number] 1960 Unknown [id number] 2.16.8 [id number] 1960 Unknown [id number] 2.16.8 [id number] 1960 Unknown [id number] 2.16.8 [id number] 1960 Unknown [id number] 2.16.8 [id number] 1960 Unknown [id number] 2.16.8 [id number] Social History Date Type Detail Facility Start: 10-25-2023 Tobacco smoking status Never s moked tobacco (finding) [facility] Tobacco smoking status Never [facility] Sex Assigned At Male [facility] Functional Status Date Assessment Result Facility 12-25-2023 Functional Status N/A [facility] 10-25-2023 Functional Status N/A [facility] Discharge instructions 12-25-2023 Note Date & Type Note Facility 12-25-2023 Hospital Discharg e instructions Patient Education 12/25/2023 19:05:59 Bee, Wasp, or Hornet Sting, Adult Bee, Wasp, or Hornet Sting, Adult Bees, wasps, and hornets are part of a family of insects that sting. Normally, a sting will cause pain, redness, and swelling at the sting site. However, some people have an allergy to these stings, and their reactions can be much more serious. What increases the risk? You may be at a greater risk of getting stung if you: Provoke a stinging insect by swatting or disturbing it. Wear strong-smelling soaps, deodorants, or body sprays. Spend time outdoors near gardens with rose or fruit trees or in clothes that expose skin. Eat or drink outside. What are the signs or symptoms? The reaction to an insect sting can vary from a mild, normal response to life-threatening anaphylaxis. The sting site is often a red lump in the skin, sometimes with a tiny hole in the center, that may still have the stinger in the center of the wound. Normal reaction A normal reaction is experienced by most people after an insect sting. Symptoms include: Pain, redness, and swelling at the sting site. These can develop over 24 48 hours. Pain, redness, and swelling that may spread to a larger, connected area beyond the sting site. The spreading can continue over 24 48 hours. Allergic reaction An allergic reaction can vary in severity and includes symptoms in other areas of the body beyond the sting site. People who experience an allergic reaction have a higher risk of having similar or worse symptoms the next time they are stung. Symptoms may include: Hives, itching, and swelling. Abdominal symptoms including cramping, nausea, vomiting, and diarrhea. Severe symptoms that require immediate medical attention include: Chest pain or tightness. Wheezing or trouble breathing. Swelling of the tongue, throat, or lips. Trouble swallowing or hoarse voice. Anaphylactic reaction An anaphylactic reaction is a severe, life-threatening allergy and requires immediate medical attention. The symptoms often include severe allergic reaction symptoms that develop rapidly and lead to: A sudden and sharp drop in blood pressure. Dizziness. Loss of consciousness. How is this diagnosed? This condition is usually diagnosed based on your symptoms and medical history as well as a physical exam. You may have an allergy test to determine if you are allergic to the insect venom. How is this treated? If you were stung by a bee, the stinger and a small sac of venom may be in the wound. Remove the stinger as soon as possible. Do this by brushing across the wound with gauze, a clean fingernail, or a flat card such as a credit card. This can help reduce the severity of your body's reaction to the sting. Normal reactions can be treated with: Washing the area thoroughly with soap and water. Applying ice to the area to reduce swelling. Oral or topical medicines to help reduce pain and itching, if present. Pay close attention to your symptoms after you have been stung. If possible, have someone stay with you to see if an allergic reaction develops. If allergic symptoms develop, oral antihistamines can be taken and you will need medical help right away. If you had an allergic reaction before, you may need to: Use an auto-injector pen (pre-filled automatic epinephrine injection device)at the first sign of an allergic reaction. Get medical help right away because the epinephrine is short-acting. It is intended to give you more time to get to an emergency room. Follow these instructions at home: Wash the sting site 2 3 times a day with soap and water as told by your health care provider. Apply or take vtst-fja-pdrzfpg and prescription medicines only as told by your health care provider. If directed, apply ice to the sting area. ?Put ice in a plastic bag. ?Place a towel between your skin and the bag. ?Leave the ice on for 20 minutes, 2 3 times a day. Do not scratch the sting area. If you had a severe allergic reaction to a sting, you may need to: ?Wear a medical bracelet or necklace that lists the allergy. ?Carry an anaphylaxis kit or an epinephrine auto-injector pen with you at all times. Tell your family members, friends, and coworkers when and how to use it. Use it at the first sign of an allergic reaction. How is this prevented? Avoid swatting at stinging insects and disturbing insect nests. Do not use fragrant soaps or lotions and avoid sitting near flowering plants, if possible. Wear shoes, pants, and long sleeves when spending time outdoors, especially in grassy areas where stinging insects are common. Keep outdoor areas free from nests or hives. Keep food and drink containers covered when eating outdoors. Wear gloves if you are gardening or working outdoors. Find a barrier between you and the insect(s), such as a door, if an attack by a stinging insect or a swarm seems likely. Contact a health care provider if: Your symptoms do not get better in 2 3 days. You have redness, swelling, or pain that spreads beyond the area of the sting. You have a fever. Get help right away if: You have symptoms of a severe allergic reaction. These include: Chest tightness or pain. Wheezing, or trouble swallowing or breathing. Light-headedness, dizziness, or fainting. Itchy, raised, red patches on the skin beyond the sting site. Abdominal cramping, nausea, vomiting, or diarrhea. Trouble swallowing or a swollen tongue, throat, or lips. These symptoms may be an emergency. Get help right away. Call 911. Do not wait to see if the symptoms will go away. Do not drive yourself to the hospital. Summary Stings from bees, wasps, and hornets can cause pain and swelling, but they are usually not serious. However, some people may have an allergic reaction to a sting. This can cause the symptoms to be more severe. Pay close attention to your symptoms after you have been stung. If possible, have someone stay with you to look for signs of worsening symptoms. Call your health care provider if you have any signs of an allergic reaction. This information is not intended to replace advice given to you by your health care provider. Make sure you discuss any questions you have with your health care provider. Document Revised: 06/30/2022 Document Reviewed: 06/30/2022 [employer] Patient Education 2022 [employer] Follow Up Care 12/25/2023 17:08:31 With:Aashish CONWAY Address: [address], [place] [address]- Business (1) When:12/28/2023 18:28:09 [facility] Clinical Note 12-25-2023 Note Date & Type Note Facility 12-25-2023 Note ED Patient Education Note Dermatology Bee, Wasp, or Hornet Sting, Adult Bees, wasps, and hornets are part of a family of insects that sting. Normally, a sting will cause pain, redness, and swelling at the sting site. However, some people have an allergy to these stings, and their reactions can be much more serious. What increases the risk? You may be at a greater risk of getting stung if you: ? Provoke a stinging insect by swatting or disturbing it. ? Wear strong-smelling soaps, deodorants, or body sprays. ? Spend time outdoors near gardens with rose or fruit trees or in clothes that expose skin. ? Eat or drink outside. What are the signs or symptoms? The reaction to an insect sting can vary from a mild, normal response to life-threatening anaphylaxis. The sting site is often a red lump in the skin, sometimes with a tiny hole in the center, that may still have the stinger in the center of the wound. Normal reaction A normal reaction is experienced by most people after an insect sting. Symptoms include: ? Pain, redness, and swelling at the sting site. These can develop over 24?48 hours. ? Pain, redness, and swelling that may spread to a larger, connected area beyond the sting site. The spreading can continue over 24?48 hours. Allergic reaction An allergic reaction can vary in severity and includes symptoms in other areas of the body beyond the sting site. People who experience an allergic reaction have a higher risk of having similar or worse symptoms the next time they are stung. Symptoms may include: ? Hives, itching, and swelling. ? Abdominal symptoms including cramping, nausea, vomiting, and diarrhea. Severe symptoms that require immediate medical attention include: ? Chest pain or tightness. ? Wheezing or trouble breathing. ? Swelling of the tongue, throat, or lips. ? Trouble swallowing or hoarse voice. Anaphylactic reaction An anaphylactic reaction is a severe, life-threatening allergy and requires immediate medical attention. The symptoms often include severe allergic reaction symptoms that develop rapidly and lead to: ? A sudden and sharp drop in blood pressure. ? Dizziness. ? Loss of consciousness. How is this diagnosed? This condition is usually diagnosed based on your symptoms and medical history as well as a physical exam. You may have an allergy test to determine if you are allergic to the insect venom. How is this treated? If you were stung by a bee, the stinger and a small sac of venom may be in the wound. Remove the stinger as soon as possible. Do this by brushing across the wound with gauze, a clean fingernail, or a flat card such as a credit card. This can help reduce the severity of your body's reaction to the sting. Normal reactions can be treated with: ? Washing the area thoroughly with soap and water. ? Applying ice to the area to reduce swelling. ? Oral or topical medicines to help reduce pain and itching, if present. Pay close attention to your symptoms after you have been stung. If possible, have someone stay with you to see if an allergic reaction develops. If allergic symptoms develop, oral antihistamines can be taken and you will need medical help right away. If you had an allergic reaction before, you may need to: ? Use an auto-injector pen (pre-filled automatic epinephrine injection device)at the first sign of an allergic reaction. ? Get medical help right away because the epinephrine is short-acting. It is intended to give you more time to get to an emergency room. Follow these instructions at home: ? Wash the sting site 2?3 times a day with soap and water as told by your health care provider. ? Apply or take slwc-fgz-xndnqiw and prescription medicines only as told by your health care provider. ? If directed, apply ice to the sting area. ? Put ice in a plastic bag. ? Place a towel between your skin and the bag. ? Leave the ice on for 20 minutes, 2?3 times a day. ? Do not scratch the sting area. ? If you had a severe allergic reaction to a sting, you may need to: ? Wear a medical bracelet or necklace that lists the allergy. ? Carry an anaphylaxis kit or an epinephrine auto-injector pen with you at all times. Tell your family members, friends, and coworkers when and how to use it. Use it at the first sign of an allergic reaction. How is this prevented? ? Avoid swatting at stinging insects and disturbing insect nests. ? Do not use fragrant soaps or lotions and avoid sitting near flowering plants, if possible. ? Wear shoes, pants, and long sleeves when spending time outdoors, especially in grassy areas where stinging insects are common. ? Keep outdoor areas free from nests or hives. ? Keep food and drink containers covered when eating outdoors. ? Wear gloves if you are gardening or working outdoors. ? Find a barrier between you and the insect(s), such as a door, if an attack by a stinging insect or a swarm seems likely. (more content not included)... [facility] Hospital Discharge instructions 10-25-2023 Note Date & Type Note Facility 10-25-2023 Hospital Discharg e instructions Patient Education 10/25/2023 13:10:35 Allergies, Adult, Gpws-lp-Lryt Allergies, Adult An allergy means that your body reacts to something that bothers it (allergen). This can happen from something that you eat, breathe in, or touch. Allergies often affect the nose, eyes, skin, and stomach. They can be mild, moderate, or very bad (severe). An allergy cannot spread from person to person. They can happen at any age. Sometimes, people outgrow them. What are the causes? Outdoor things, such as pollen, car fumes, and mold. Indoor things, such as dust, smoke, mold, and pets. Foods. Medicines. Things that bother your skin, such as perfume and bug bites. What increases the risk? Having family members with allergies or asthma. What are the signs or symptoms? Symptoms depend on how bad your allergy is. Mild to moderate symptoms Runny nose, stuffy nose, or sneezing. Itchy mouth, ears, or throat. A feeling of mucus dripping down the back of your throat. Sore throat. Eyes that are itchy, red, watery, or puffy. A skin rash, or red, swollen areas of skin (hives). Stomach cramps or bloating. Severe symptoms Very bad allergies to food, medicine, or bug bites may cause a very bad allergy reaction (anaphylaxis). This can be life-threatening. Symptoms include: A red face. Wheezing or coughing. Swollen lips, tongue, or mouth. Tight or swollen throat. Chest pain or tightness, or a fast heartbeat. Trouble breathing or shortness of breath. Pain in your belly (abdomen), vomiting, or watery poop (diarrhea). Feeling dizzy or fainting. How is this treated? Treatment for this condition depends on your symptoms. Treatment may include: Cold, wet cloths for itching and swelling. Eye drops, nose sprays, or skin creams. Washing out your nose each day. A humidifier. Medicines. A change to the foods you eat. Being exposed again and again to tiny amounts of allergens. This helps your body get used to them. You might have: ?Allergy shots. ?Very small amounts of allergen put under your tongue. An emergency shot (auto-injector pen) if you have a very bad allergy reaction. ?This is a medicine with a needle. You can put it into your skin by yourself. ?Your doctor will teach you how to use it. Follow these instructions at home: Medicines Take or apply erdc-fjx-wcuryxe and prescription medicines only as told by your doctor. If you are at risk for a very bad allergy reaction, keep an auto-injector pen with you all the time. Eating and drinking Follow instructions from your doctor about what to eat and drink. Drink enough fluid to keep your pee (urine) pale yellow. General instructions If you have ever had a very bad allergy reaction, wear a medical alert bracelet or necklace. Stay away from things that you are allergic to. Keep all follow-up visits as told by your doctor. This is important. Contact a doctor if: Your symptoms do not get better with treatment. Get help right away if: You have symptoms of a very bad allergy reaction. These include: ?A swollen mouth, tongue, or throat. ?Pain or tightness in your chest. ?Trouble breathing. ?Being short of breath. ?Dizziness. ?Fainting. ?Very bad pain in your belly. ?Vomiting. ?Watery poop. These symptoms may be an emergency. Do not wait to see if the symptoms will go away. Get medical help right away. Call your local emergency services (911 in the [place] Do not drive yourself to the hospital. Summary Take or apply bloo-yao-hdmjmhu and prescription medicines only as told by your doctor. Stay away from things you are allergic to. If you are at risk for a very bad allergy reaction, carry an auto-injector pen all the time. Wear a medical alert bracelet or necklace. Very bad allergy reactions can be life-threatening. Get help right away. This information is not intended to replace advice given to you by your health care provider. Make sure you discuss any questions you have with your health care provider. Document Revised: 03/13/2020 Document Reviewed: 03/13/2020 [employer] Patient Education 2022 [employer]. 10/25/2023 13:10:27 Back Exercises, Efxq-at-Crhx Back Exercises These exercises help to make your trunk and back strong. They also help to keep the lower back flexible. Doing these exercises can help to prevent or lessen pain in your lower back. If you have back pain, try to do these exercises 2 3 times each day or as told by your doctor. As you get better, do the exercises once each day. Repeat the exercises more often as told by your doctor. To stop back pain from coming back, do the exercises once each day, or as told by your doctor. Do exercises exactly as told by your doctor. Stop right away if you feel sudden pain or your pain gets worse. Exercises Single knee to chest Do these steps 3 5 times in a row for each le.Lie on your back on a firm bed or the floor with your legs stretched out. 2.Bring one knee to your chest. 3.Grab your knee or thigh with both hands and hold it in place. 4.Pull on your knee until you feel a gentle stretch in your lower back or butt. 5.Keep doing the stretch for 10 30 seconds. 6.Slowly let go of your leg and straighten it. Pelvic tilt Do these steps 5 10 times in a row: 1.Lie on your back on a firm bed or the floor with your legs stretched out. 2.Bend your knees so they point up to the ceiling. Your feet should be flat on the floor. 3.Tighten your lower belly (abdomen) muscles to press your lower back against the floor. This will make your tailbone point up to the ceiling instead of pointing down to your feet or the floor. 4.Stay in this position for 5 10 seconds while you gently tighten your muscles and breathe evenly. Cat cow Do these steps until your lower back bends more easily: 1.Get on your hands and knees on a firm bed or the floor. Keep your hands under your shoulders, and keep your knees under your hips. You may put padding under your knees. 2.Let your head hang down toward your chest. Tighten (contract) the muscles in your belly. Point your tailbone toward the floor so your lower back becomes rounded like the back of a cat. 3.Stay in this position for 5 seconds. 4.Slowly lift your head. Let the muscles of your belly relax. Point your tailbone up toward the ceiling so your back forms a sagging arch like the back of a cow. 5.Stay in this position for 5 seconds. Press-ups Do these steps 5 10 times in a row: 1.Lie on your belly (face-down) on a firm bed or the floor. 2.Place your hands near your head, about shoulder-width apart. 3.While you keep your back relaxed and keep your hips on the floor, slowly straighten your arms to raise the top half of your body and lift your shoulders. Do not use your back muscles. You may change where you place your hands to make yourself more comfortable. 4.Stay in this position for 5 seconds. Keep your back relaxed. 5.Slowly return to lying flat on the floor. Bridges Do these steps 10 times in a row: 1.Lie on your back on a firm bed or the floor. 2.Bend your knees so they point up to the ceiling. Your feet should be flat on the floor. Your arms should be flat at your sides, next to your body. 3.Tighten your butt muscles and lift your butt off the floor until your waist is almost as high as your knees. If you do not feel the muscles working in your butt and the back of your thighs, slide your feet 1 2 inches (2.5 5 cm) farther away from your butt. 4.Stay in this position for 3 5 seconds. 5.Slowly lower your butt to the floor, and let your butt muscles relax. If this exercise is too easy, try doing it with your arms crossed over your chest. Belly crunches Do these steps 5 10 times in a row: 1.Lie on your back on a firm bed or the floor with your legs stretched out. 2.Bend your knees so they point up to the ceiling. Your feet should be flat on the floor. 3.Cross your arms over your chest. 4.Tip your chin a little bit toward your chest, but do not bend your neck. 5.Tighten your belly muscles and slowly raise your chest just enough to lift your shoulder blades a tiny bit off the floor. Avoid raising your body higher than that because it can put too much stress on your lower back. 6.Slowly lower your chest and your head to the floor. Back lifts Do these steps 5 10 times in a row: 1.Lie on your belly (face-down) with your arms at your sides, and rest your forehead on the floor. 2.Tighten the muscles in your legs and your butt. 3.Slowly lift your chest off the floor while you keep your hips on the floor. Keep the back of your head in line with the curve in your back. Look at the floor while you do this. 4.Stay in this position for 3 5 seconds. 5.Slowly lower your chest and your face to the floor. Contact a doctor if: Your back pain gets a lot worse when you do an exercise. Your back pain does not get better within 2 hours after you exercise. If you have any of these problems, stop doing the exercises. Do not do them again unless your doctor says it is okay. Get help right away if: You have sudden, very bad back pain. If this happens, stop doing the exercises. Do not do them again unless your doctor says it is okay. This information is not intended to replace advice given to you by your health care provider. Make sure you discuss any questions you have with your health care provider. Document Revised: 07/16/2021 Document Reviewed: 07/16/2021 [employer] Patient Education 2022 [employer]. Follow Up Care 07/19/2023 12:36:38 With:MAN LEAL FAAFP, Aashish Vasquez, FAM, PED Address: [address], [place] [address]- When:Within 1 Year(s) With:Aashish CONWAY DO, FAAFP, FAM, PED Address: [place] [address] [place] [address]- When:Within 6 Month(s) [facility] Progress note 05-13-2023 Note Date & Type Note Facility 05-13-2023 Note HNO ID: [id number] Author: Clementine Page, DELMER Service: ? Author Type: [employer] Type: Progress Notes Filed: 05/13/2023 3:16 PM Note Text: ASSESSMENT/PLAN: 1. Nuclear sclerotic cataract of both eyes - ICD9: 366.16, ICD10: H25.13 (primary diagnosis) Patient educated very early New glasses optional 2. Ocular hypertension, bilateral - ICD9: 365.04, ICD10: H40.053 Patient educated borderline No significant cupping Get visual field, pachymetry and OCT next year Return to clinic: visual field, pachymetry, dilate, OCT one year Clementine Page, OD I have confirmed and edited as necessary the relevant HPI, ophthalmic history, ROS, and the neuro exam findings as obtained by others. I have seen and examined this patient. I have discussed the case and the management of this patient's care with the Resident/Fellow, if applicable. I also have reviewed and agree with the assessment and plan as stated above and agree with all of its relevant components. Clementine Page, OD May 13, 2023 3:15 PM [facility] Evaluation + Plan note Note Date & Type Note Facility Evaluation + Plan note [facility] Hospital course Narrative Note Date & Type Note Facility Hospital course Narrative No data available for this section [facility] Progress note Note Date & Type Note Facility Progress note No data available for this section [facility] Reason for referral (narrative) Note Date & Type Note Facility Reason for referral (narrative) Referred by: Aashish CONWAY DO, FAAFP [facility] Summary Purpose Family History No Family History Records Found No data available for this section No Family History Records Found No data available for this section No Family History Records Found Advance Directives No Advanced Directives Records FoundNo Advanced Directives Records FoundNo Advanced Directives Records Found Additional Source Comments (unrecognized sect ion and content) No Status Records FoundNo Status Records FoundNo Status Records Found INFORMATION SOURCE (unrecogn ized section and content) DATE CREATED AUTHOR 05/15/2023 [facility] DATE CREATED AUTHOR AUTHOR'S ORGANIZ ATION 12/23/2023 [facility] DATE CREATED AUTHOR AUTHOR'S ORGANIZ ATION 01/06/2024 [facility] Patient Care team informatio n (unrecognized section and content) Personnel Name: Aashish CONWAY DO, FAAFP Address: Address: [address] [place] [address] Personnel Name: Aashish CONWAY DO, FAAFP Address: Address: [address] [place] [address] FOR RECORDS PERTAINING TO PATIENTS WHO ARE OR HAVE BEEN ENROLLED IN A CHEMICAL DEPENDENCY/SUBSTANCEABUSE PROGRAM, SOME INFORMATION MAY BE OMITTED. This clinical summary was aggregated from multiple sources. Caution should be exercised in using it in the provision of clinical care. This summary normalizes information from multiple sources, and as a consequence, information in this document may materially change the coding, format and clinical context of patient data. In addition, data may be omitted in some cases. CLINICAL DECISIONS SHOULD BE BASED ON THE PRIMARY CLINICAL RECORDS. [facility] [employer] [facility]. provides no warranty or guarantee of the accuracy or completeness of information in this document.
[2024-06-07 12:42] VITALS: BP 142/80; PULSE 20; TEMP 36.2; O2SAT 97; BMI 32.3
[2024-06-12] VITALS (8 sets, daily range): BP systolic 104–139; BP diastolic 69–98; PULSE 79–93; TEMP 36–37.1; O2SAT 92–97; BMI 29.4
--- OUTSIDE RECORDS SUMMARY | 2024-06-12 07:07 | XMS_ITS | CCD ---
Author Organization [facility] Care Team Providers Care Brush Material Preparer Name Role Phone CLEMENTINE PAGE Attending Unavailable [...] symptoms, # 30 cap(s), Refills(s) 0, [facility], 182, cm, 12/25/23 17:13:00 EDT, [...] Daily, # 90 tab(s), Refills(s) 3, [facility], [facility], cm, 10/25/23 12:56:00 EDT, Height/Length Dosing, 99.8, kg, 10/25/23 12:56:00 EDT, Weight Dosing Start Date: 10/25/23 Status: Ordered montelukast 10 mg oral tablet (2 sources) Leukotriene Receptor Antagonist Start: 10-25-2023 take 1 tablet by mouth once daily Singulair 10 mg Tab 10 mg = 1 tab(s), Oral, Daily, # 90 tab(s), Refills(s) 3, Pharmacy: [facility], 182, cm, 10/25/23 12:56:00 EDT, Height/Length Dosing, 99.8, kg, 10/25/23 12:56:00 EDT, Weight Dosing Start Date: 10/25/23 Status: Ordered predniSONE 20 mg oral tablet (1 source) Start: 12-25-2023 End: 12-29-2023 take 3 tablets by mouth once daily predniSONE 20 mg Tab 60 mg = 3 tab(s), Oral, Daily, X 4 day(s), # 12 tab(s), Refills(s) 0, Pharmacy: [facility] 1986, 182, cm, 12/25/23 17:13:00 EDT, [...] symptoms, # 30 cap(s), Refills(s) 0, Pharmacy: [facility] 1985, 182, cm, 12/25/23 17:13:00 EDT, Height/Length Dosing, 101.7, kg, 12/25/23 17:13:00 EDT, Weight Dosing famotidine, 40 mg = 2 tab(s), Tab, Oral, Once, Stop date 12/25/23 17:42:00 EDT, STAT, Start date 12/25/23 17:42:00 EDT, 12/25/23 17:42:00 EDT predniSONE, 60 mg = 3 tab(s), Oral, Daily, X 4 day(s), # 12 tab(s), Refills(s) 0, Pharmacy: [facility] 1985, 182, cm, 12/25/23 17:13:00 EDT, [...] CONWAY In 3 days 12/28/[address] [place], (more content not included)... Normal [facility] Comment on above: Result Comment: Elec tronically Signed By: Silverio Chen PA-C\.br\Date and Time Signed: 12/25/23 21:28 EDT\.br\Electronically Co-Signed By: Jimy Shook DO\.br\Date and Time Co-Signed: 01/05/24 06:43 EDT ED Clinical Summaryon 2023 ED Clinical Summary ED Clinical Summary [address] [address] ED Clinical Summary Person Information Name: BOB LIMA Briana/[facility] Age: 63 Years : 1960 [...] 12/25/2023 19:05:59 12/25/2023 19:05:59 12/25/2023 19:05:59 ADDRESS: [address] [place] [address] DR [place] MD [id number] PHYS DOC NOTES: MEDICAL INFORMATION: Prescriptions Given: New Medications [facility], [address] [place], [place] [id number], [phone] diphenhydrAMINE (diphenhydrAMINE 25 mg Cap) 1 Capsules [...] Follow up: With: Address: When: Aashish [facility] [place] [id number] [facility] (1) In 3 days 12/28/2023 DIAGNOSIS: Bee sting reaction Normal [facility] ED Patient Summaryon ED Patient Summary ED Patient Summary [address] [address] Patient Discharge Instructions Person Information Name: BOB LIMA Age: 63 Years Arrival Date: 12/25/2023 17:07:15 Discharge Diagnosis: Bee sting reaction Primary Care Physician: Aashish CONWAY DO, FAAFP Provider Information Primary Provider: Jimy Shook DO [employer]:Silverio Chen PA-C. The exam and treatment you received in the Emergency Department were for an urgent problem and are not intended as complete care. It is important that you follow up with a doctor, nurse practitioner, or physician?s sociology research assistant for ongoing care. If your symptoms [...] Instructions: With: Address: When: Aashish [address], [place] [address] [facility] (1) In 3 days 12/28/2023 In the event that this physician does not participate in your insurance network, please consult with your insurance company to find a nearby participating provider. Patient Education Materials: Bee, Wasp, or Hornet Sting, Adult A MESSAGE TO ALL PATIENTS REGARDING OPIOIDS PRESCRIPTION OPIOIDS: WHAT YOU NEED TO KNOW Prescription opioids can be used to help relieve bhnvhrms-og-yhqdmp pain and are often prescribed following a [...] be struggling with addiction, tell your health customer care voice consultant and ask for guidance or call [facility]?S Adena Help (more content not included)... Normal [facility] Physician Referralon 024 Physician Referral [id number]#1.00TIFF Normal [facility] Family Medicine Office/Clini c Noteon 10-25-2023 [...] kicking my butt, the Singulair helps the [place] is the worst is getting toward the [...] labeling, # 21 tab(s), Refills(s) 1, Pharmacy: [facility], 182, cm, 07/19/23 11:42:00 EST, Height/Length Dosing, 102.2, kg, 07/19/23 11:42:00 EST, Weight Dosing 2. Left lumbar radiculitis (M54.16: Radiculopathy, lumbar region) see 1 Ordered: methylPREDNISolone, = 1 packet(s), Oral, As Directed, as directed on package labeling, # 21 tab(s), Refills(s) 1, Pharmacy: [facility], 182, cm, 07/19/23 11:42:00 EST, [...] weight manageme (more content not included)... Normal [facility] Comment on above: Result Comment: Elec [...] at home: Medicines ? Take or apply dbfc-udp-nkegztg and prescription medicines only as told by [...] the hospital. Summary ? Take or apply ponh-lle-xcyixmz and prescription medicines only as told by [...] PT - Assessmentson 4 PT - Assessments [id number]#1.00TIFF [facility] PT - Home Exercise Programon 08-19-2023 PT - Home Exercise Program [id number]#1.00TIFF [facility] PT - Home Exercise Programon 08-10-2023 PT - Home Exercise Program [id number]#1.00TIFF [facility] PT - Home Exercise Programon 07-29-2023 PT - Home Exercise Program [id number]#1.00TIFF [facility] Consent for Treatmenton Consent for Treatment [id number]#1.00TIFF [facility] PT - Assessmentson PT - Assessments [id number]#1.00TIFF [facility] PT - Consentson 07-22-2023 PT - Consents [id number]#1.00TIFF [facility] PT - Home Exercise Programon 07-22-2023 PT - Home Exercise Program [id number]#1.00TIFF Kirt Lanier [facility] Ambulatory Visit Summaryon 0 07-19-2023 Ambulatory [...] hernia, History of repair of umbilical hernia, Ettrick tooth. Discharge Vitals Temperature (Temporal Artery) 36.7 ?C Heart Rate (Peripheral) 74 Respiratory Rate 18 Blood Pressure 134/82 Height 182 cm Height 72 in Weight 102.2 kg Weight 224.84 lb BMI 30.85 What to do next You Need to Schedule the Following Appointments Follow Up with Aashish CONWAY DO, FAAFP, JULIUS, PED When: In 3 months Where: [address] [place] [address]- Medications What How Much When Why Instructions New amoxicillin-clavulanate (Augmentin 875 mg oral tablet) 1 Tablets By Mouth Every 12 hours Frontal sinusitis Duration: 10 Days Pickup at [facility] 1985 New methylPREDNISolone (Medrol 4 mg Tab) 1 Packets By Mouth As Directed Left lumbar radiculitis Sciatica of left side Refills: 1 as directed on package labeling Pickup at [facility] 1985 Unchanged ascorbic acid (Vitamin C 500 mg Tab) 1 Tablets By Mouth Every day Unchanged fluticasone nasal (Flonase 0.05 mg/ inh nasal spray) 50 Microgram Nasal Inhalation 2 times a day Unchanged loratadine 10 Milligram By Mouth Every day Unchanged montelukast (Singulair 10 mg Tab) 1 Tablets By Mouth Every day Pharmacy Information [facility] 1986: [address] [place], [place] [phone] Allergies No Known Allergies Problems Ongoing - [...] tailbone toward (more content not included)... Normal [facility] BMPon 07-19-2023 Anion gap [Moles/Vol] 13 mmol/L Normal 6-16 [facility] Comment on above: Performed By: #### 2 243592, 81762968, 0726720, 5790950, 1814609, 28311848, 273800960 ####[facility] [address] [place] [address] Calcium [Mass/Vol] 9.6 mg/dL Normal 8.9-11.1 [facility] Comment on above: Performed By: #### 2 286426, 36703349, 2886580, 9839291, 9081935, 77708362, 333426803 ####[facility] [address] [place] [address] Chloride [Moles/Vol] 102 mmol/L Normal 101-111 [facility] Comment on above: Performed By: #### 2 672309, 00230378, 9883074, 9852882, 3845752, 60766943, 427891982 ####[facility] [address] [place] [address] CO2 [Moles/Vol] 28 mmol/L Normal 21-31 [facility] Comment on above: Performed By: #### 2 141158, 00623912, 6947642, 9021327, 9045227, 66905154, 571641297 ####[facility] [address] [place] [address] Creatinine [Mass/Vol] 1.1 mg/dL Normal 0.5-1.3 [facility] Comment on above: Performed By: #### 2 015212, 08350159, 8240892, 8567296, 5381897, 55535220, 495442694 ####[facility] [address] [place] [address] Glucose [Mass/Vol] 83 mg/dL Normal 55-199 [facility] Comment on above: Performed By: #### 2 816124, 01317413, 0618238, 2703671, 5394820, 71330724, 122976269 ####[facility] [address] [place] [address] Potassium [Moles/Vol] 4.3 mmol/L Normal 3.5-5.3 [facility] Comment on above: Performed By: #### 2 454634, 54597429, 3052680, 4109248, 7987883, 92520674, 618045559 ####[facility] [address] [place] [address] Sodium [Moles/Vol] 139 mmol/L Normal 135-145 [facility] Comment on above: Performed By: #### 2 564318, 84358646, 8211469, 5935060, 0662795, 91309413, 208306677 ####[facility] [address] [place] [address] Urea nitrogen [Mass/Vol] 15 mg/dL Normal 5-21 [facility] Comment on above: Performed By: #### 2 331833, 98923138, 1908625, 0648135, 6093633, 10054523, 479890292 ####[facility] [address] [place] [address] Urea nitrogen/Creatini ne [Mass ratio] 14 No Units Normal 10-20 [facility] Comment on above: Performed By: #### 2 495090, 21869085, 6018144, 8722710, 5742640, 04070990, 871962752 ####[place] [place] [address] CBC w/ Auto Diffon 4 Basophils/100 WBC (Bld) 0.5 % Normal 0.0-2.0 [facility] Comment on above: Performed By: #### 2 694367, 27163756, 4917894, 9828356, 3946457, 44219899, 694368912 ####[address] [address] Basophils/Leukocy les Auto (Bld) [Pure # fraction] 0.0 E9/L Normal 0.0-0.2 [facility] Comment on above: Performed By: #### 2 874408, 90551091, 0562632, 4622057, 2745078, 49523911, 835297783 ####[address] [address] Eosinophils (Bld) [#/Vol] 0.2 E9/L Normal 0.0-0.5 [facility] Comment on above: Performed By: #### 2 680827, 43413756, 2499319, 6232584, 4791752, 43380674, 849046771 ####[address] [address] Eosinophils/100 WBC (Bld) 2.4 % Normal 0.0-8.0 [facility] Comment on above: Performed By: #### 2 613139, 34684009, 0813155, 1514949, 9836987, 98431024, 864237045 ####[address] [address] Erythrocyte distribution width (RBC) [Ratio] 13.4 % Normal 10.9-14.2 [facility] Comment on above: Performed By: #### 2 450922, 13354003, 6137652, 1323231, 5839768, 15417729, 165510077 ####[facility] [address] [place] [address] Hematocrit (Bld) [Volume fraction] 44.0 % Normal 37.7-49.0 [facility] Comment on above: Performed By: #### 2 699283, 69868111, 6976959, 0357551, 1139709, 36207822, 247577891 ####[place] [place] [address] Hemoglobin (Bld) [Mass/Vol] 14.7 g/dL Normal 13.5-17.5 [facility] Comment on above: Performed By: #### 2 231109, 65048854, 5040451, 4086881, 9488137, 21313010, 219265354 ####[address] [address] Lymphocytes (Bld) [#/Vol] 2.2 E9/L Normal 1.0-4.0 [facility] Comment on above: Performed By: #### 2 690487, 31026038, 8675519, 4573541, 8933045, 82627883, 013282818 ####[address] [address] Lymphocytes/100 WBC (Bld) 26.5 % Normal 14.0-50.0 [facility] Comment on above: Performed By: #### 2 170587, 49678918, 1085870, 6539608, 2477453, 41331611, 097914552 ####[address] [place] [address] MCH (RBC) [Entitic mass] 30.0 pg Normal 27.0-34.0 [facility] Comment on above: Performed By: #### 2 668181, 32143848, 9225133, 7228532, 0357500, 90211083, 062261734 ####[address] [address] MCHC (RBC) [Mass/Vol] 33.4 g/dL Normal 31.4-36.0 [facility] Comment on above: Performed By: #### 2 198692, 21289273, 4749145, 1452180, 0570646, 04650898, 338094410 ####[facility] [address] [place] [address] MCV (RBC) [Entitic vol] 89.7 fL Normal 80.0-100.0 [facility] Comment on above: Performed By: #### 2 967498, 95209489, 7090768, 8117180, 8856592, 43835153, 704190142 ####[address] [place] [address] Monocytes (Bld) [#/Vol] 0.7 E9/L Normal 0.2-1.0 [facility] Comment on above: Performed By: #### 2 086390, 46873157, 9993256, 8803537, 3334814, 47266519, 325223905 ####[address] [address] Neutrophils (Bld) [#/Vol] 5.1 E9/L Normal 2.0-7.5 [facility] Comment on above: Performed By: #### 2 040921, 76976295, 9491440, 0776158, 1854939, 36629157, 361115706 ####[address] [address] Neutrophils/100 WBC (Bld) 62.4 % Normal 36.0-75.0 [facility] Comment on above: Performed By: #### 2 853352, 68571222, 8128885, 5292373, 8982055, 94950183, 965293736 ####[address] [place] [address] Platelet 256.0 E9/L Normal 150.0-500.0 [facility] Comment on above: Performed By: #### 2 799781, 05784111, 6559084, 1393115, 8300670, 54678791, 120458768 ####[facility] [address] [place] [address] Platelet mean volume (Bld) [Entitic vol] 8.1 fL Normal 6.4-10.8 [facility] Comment on above: Performed By: #### 2 582406, 67170968, 2437167, 2130174, 5766776, 86526291, 300297920 ####[facility] [address] [place] [address] RBC (Bld) [#/Vol] 4.9 E12/L Normal 4.3-5.9 [facility] Comment on above: Performed By: #### 2 082055, 65787842, 3329175, 8273773, 9985799, 81589283, 807911884 ####[address] [place] [address] WBC corrected for nucl RBC Auto (Bld) [#/Vol] 8.2 E9/L Normal 4.0-11.0 [facility] Comment on above: Performed By: #### 2 565547, 11976427, 0241844, 8872479, 7898314, 82770940, 658492916 ####[facility] [address] [place] [address] Consent for Treatmenton Consent for Treatment [id number]#1.00TIFF Normal [facility] Family Medicine Office/Clini c Noteon 07-19-2023 [...] day(s), # 20 tab(s), Refills(s) 0, Pharmacy: [facility], 182, cm, 07/19/23 11:42:00 EST, [...] as di (more content not included)... Normal [facility] Comment on above: Result Comment: Elec tronically Signed By: MAN LEAL FAAFP, Aashish Vasquez\chris\Date and Time Signed: 07/19/23 12:47 EST Hep Func Panelon 07-19-2023 Albumin [Mass/Vol] 4.3 g/dL Normal 3.3-5.0 [facility] Comment on above: Performed By: #### 2 529342, 22478087, 7397284, 4647946, 3838375, 60883825, 085910035 ####[facility] [address] [place] [address] Albumin/Globulin (S) [Mass conc ratio] 1.5 Normal 1.1-2.2 [facility] Comment on above: Performed By: #### 2 960384, 63952083, 9471085, 4474359, 1754664, 72246349, 401521923 ####[facility] [address] [place] [address] ALP [Catalytic activity/Vol] 54 Int._Unit/L Normal 21-98 [facility] Comment on above: Performed By: #### 2 286949, 70759471, 1270664, 5304529, 9656523, 28250208, 675385417 ####[facility] [address] [place] [address] ALT No additional P-5'-P [Catalytic activity/Vol] 27 Int._Unit/L Normal 6-46 [facility] Comment on above: Performed By: #### 2 025213, 63506246, 4915755, 4801919, 4205964, 53620099, 155384148 ####[facility] [address] [place] [address] AST [Catalytic activity/Vol] 26 Int._Unit/L Normal 5-43 [facility] Comment on above: Performed By: #### 2 528999, 95103292, 2294220, 0567418, 5068308, 15971439, 798163255 ####[facility] [address] [place] [address] Bilirubin [Mass/Vol] 0.6 mg/dL Normal 0.0-1.1 [facility] Comment on above: Performed By: #### 2 882050, 94531890, 0868878, 7024321, 8214621, 13952693, 019079004 ####[facility] [address] [place] [address] Bilirubin.direct [Mass/Vol] 0.1 mg/dL Normal 0.0-0.4 [facility] Comment on above: Performed By: #### 2 450751, 18298439, 5638581, 1356310, 7383755, 05468400, 180506767 ####[facility] [address] [place] [address] Bilirubin.indirec t [Mass or moles/Vol] 0.5 mg/dL Normal 0.1-0.9 [facility] Comment on above: Performed By: #### 2 259854, 50037885, 6483947, 1703999, 0788126, 77148890, 094593938 ####[facility] [address] [place] [address] Globulin (S) [Mass/Vol] 2.9 g/dL Normal 1.4-4.0 [facility] Comment on above: Performed By: #### 2 240393, 34302623, 5997192, 2189000, 3586192, 98826729, 995916076 ####[facility] [address] [place] [address] Protein [Mass/Vol] 7.2 g/dL Normal 6.0-7.8 [facility] Comment on above: Performed By: #### 2 090981, 27553120, 9284177, 7456269, 0289904, 85541976, 290095780 ####[facility] [address] [place] [address] NyuO2pes 07-19-2023 HbA1c (Bld) [Mass fraction] 5.7 % Normal <=5.9 [facility] Comment on above: Performed By: #### 2 781547, 34027547, 6141309, 7705189, 9471409, 80205865, 807154571 ####[facility] [address] [facility] [place] [address] Lipid Panelon 07-19-2023 Cholesterol [Mass/Vol] 166 mg/dL Normal 120-200 [facility] Comment on above: Performed By: #### 2 246760, 13383185, 5897234, 1188207, 2004492, 53572730, 970115867 ####[facility] [address] [place] [address] Cholesterol in HDL [Mass/Vol] 34 mg/dL Invalid Interpretation Code [facility] Comment on above: Result Comment: '>= 60 LOW RISK' '<= 40 HIGH RISK' Performed By: #### 2 710031, 18095336, 6096497, 1689746, 0906788, 00926549, 411755346 ####[facility] [address] [place] [address] Cholesterol in LDL [Mass/Vol] 87 mg/dL Normal <=129 [facility] Comment on above: Performed By: #### 2 492532, 51786889, 6747547, 6918350, 7109512, 09089279, 574903727 ####[facility] [address] [place] [address] Cholesterol in VLDL [Mass/Vol] 51 mg/dL High 7-40 [facility] Comment on above: Performed By: #### 2 973851, 36593975, 0187140, 2082614, 3088844, 68119518, 133167965 ####[facility] [address] [place] [address] Triglyceride [Mass/Vol] 254 mg/dL High <=149 [facility] Comment on above: Performed By: #### 2 894607, 58105787, 2396936, 7220987, 5712972, 16488345, 853532608 ####[facility] [address] [place] [address] PSA Screen, Totalon 07-19-19 24 Prostate specific Ag [Mass/Vol] 0.5 ng/mL Normal 0.1-3.5 [facility] Comment on above: Result Comment: The concentration of PSA determined by different manufacturers can vary due to differences in assay methods and reagent specificity. Values obtained from different assay methods cannot be used interchangeably. The methodology used for this result was chemiluminescence using [employer] Access [employer] PSA reagent. Performed By: #### 2 835023, 21953586, 9133672, 9895361, 8389671, 04538125, 898504191 ####[facility] [address] [place] [address] Patient Educationon 07-19-19 24 Patient Education Orthopedics [...] the exercise (more content not included)... Normal [facility] eGFRon 07-19-2023 eGFR 76 mL/min/1.73 m2 Normal >=59 [facility] Comment on above: Order Comment: Order added by Discern Expert. Performed By: #### 2 481999, 67015836, 7027927, 2573703, 4316093, 90380147, 029700621 ####[facility] [address] [place] [address] Vital Signs Date Time Vital Sign Value Performing Clinician Rachel kaiser 12-25-2023 17:11-0400 Body temperature 97.88 [degF] Jimy Shook [facility] 12-25-2023 17:11-0400 Diastolic blood pressure 101 mm[Hg] Jimy Shook [facility] 12-25-2023 17:11-0400 Heart rate 70 /min Jimy Shook [facility] 12-25-2023 17:11-0400 Respiratory rate 16 /min Jimy Shook [facility] 12-25-2023 17:11-0400 SaO2% (BldA) [Mass fraction] 94 % Jimy Shook [facility] 12-25-2023 17:11-0400 Systolic blood pressure 163 mm[Hg] Jimy Shook [facility] 10-25-2023 12:50-0400 Blood Pressure Location Aashish CEELE [facility] 10-25-2023 12:50-0400 Body temperature 97.88 [degF] Aashish KAPLE [facility] 10-25-2023 12:50-0400 Diastolic blood pressure 70 mm[Hg] Aashish KAPLE [facility] 10-25-2023 12:50-0400 Heart rate 74 /min Aashish KAPLE [facility] 10-25-2023 12:50-0400 Respiratory rate 18 /min Aashish KAPLE [facility] 10-25-2023 12:50-0400 SaO2% (BldA) [Mass fraction] 98 % Aashish CONWAY [facility] 10-25-2023 12:50-0400 Systolic blood pressure 120 mm[Hg] Aashish CONWAY [facility] Encounters Encounter Date Encounter Type Care Provider Facility Start: 12-25-2023 End: 12-25-2023 Emergency department patient visit Jimy Michael Shook [facility] Start: 12-21-2023 End: 12-21-2023 ambulatory JARRELL HEBERT Not Available Start: 10-25-2023 End: 10-25-2023 ambulatory Aashish CONWAY Facility:[facility] Start: 10-25-2023 End: 10-25-2023 Patient encounter procedure Aashish CONWAY [facility] Start: 07-22-2023 End: 11-14-2023 ambulatory Aashish CONWAY Facility[facility] Start: 07-19-2023 End: 07-19-2023 ambulatory Aashish CONWAY Facility:[facility] Start: 07-19-2023 End: 07-19-2023 ambulatory Aashish CONWAY Facility:[facility] Start: 05-13-2023 End: 05-13-2023 ambulatory CLEMENTINE PAGE Facility:[facility] Procedures Date Procedure Procedure Detail Performing Clinician [...] cility 08-06-2023 zoster vaccine recombinant Aashish CONWAY [facility] 05-01-2023 zoster vaccine recombinant Aashish CONWAY [facility] 08-24-2020 SARS-CoV-2 (COVID-19 ) mRNA-1273 vaccine Aashish CONWAY [facility] 07-27-2020 SARS-CoV-2 (COVID-19 ) mRNA-1273 vaccine Aashish CONWAY [facility] 03-06-2014 influenza virus vaccine, unspecified formulation Aashish CONWAY [facility] 12-01-2007 tetanus toxoid, reduced diphtheria toxoid, and acellular pertussis vaccine, adsorbed Aashish CONWAY [facility] NEGATED: Highlighted row has not occurred!05-26-2019 influenza virus vaccine, live, attenuated, for intranasal use Aashish CONWAY [facility] NEGATED: Highlighted row has not occurred!03-17-2019 influenza virus vaccine, unspecified formulation Aashish CONWAY [facility] Payers Date Payer Category Payer Medicaid [id number] 1960 Unknown [id number] 1960 Unknown [id number] 2.16.8 [id number] 1960 Unknown [id number] 2.16.8 [id number] 1960 Unknown [id number] 2.16.8 [id number] 1960 Unknown [id number] 2.16.8 [id number] 1960 Unknown [id number] 2.16.8 [id number] Social History Date Type Detail Facility Start: 10-25-2023 Tobacco smoking status Never s moked tobacco (finding) [facility] Tobacco smoking status Never [facility] Sex Assigned At Male [facility] Functional Status Date Assessment Result Facility 12-25-2023 Functional Status N/A [facility] 10-25-2023 Functional Status N/A [facility] Discharge instructions 12-25-2023 Note [...] your health care provider. Apply or take osrg-epg-qggradl and prescription medicines only as told by [...] provider. Document Revised: 06/30/2022 Document Reviewed: 06/30/2022 [employer] Patient Education 2022 [employer]. Follow Up Care 12/25/2023 17:08:31 With:Aashish CONWAY Address: [address], [place] [address]- Business (1) When:12/28/2023 18:28:09 [facility] Clinical Note 12-25-2023 Note Date & Type [...] health care provider. ? Apply or take ezrq-owr-wmmqmkd and prescription medicines only as told by [...] swarm seems likely. (more content not included)... [facility] Hospital Discharge instructions 10-25-2023 Note Date & Type Note Facility 10-25-2023 Hospital Discharg e instructions Patient Education 10/25/2023 13:10:35 Allergies, Adult, Dysx-so-Fzot Allergies, Adult An allergy means that your [...] instructions at home: Medicines Take or apply qybc-asw-xexllyb and prescription medicines only as told by [...] to the hospital. Summary Take or apply ywdz-cih-orkaxec and prescription medicines only as told by [...] provider. Document Revised: 03/13/2020 Document Reviewed: 03/13/2020 [employer] Patient Education 2022 [employer]. 10/25/2023 13:10:27 Back Exercises, Jjld-xs-Yrsx Back Exercises These exercises help to make [...] provider. Document Revised: 07/16/2021 Document Reviewed: 07/16/2021 [employer] Patient Education 2022 [employer]. Follow Up Care 07/19/2023 12:36:38 With:MAN LEAL FAAFP, Aashish Vasquez, FAM, PED Address: [address], [place] [address]- When:Within 1 Year(s) With:Aashish CONWAY DO, FAAFP, FAM, PED Address: [place] [address] [place] [address]- When:Within 6 Month(s) [facility] Progress note 05-13-2023 Note Date & Type Note Facility 05-13-2023 Note HNO ID: [id number] Author: Clementine Page, DELMER Service: ? Author Type: 2 YEAR [employer] Type: Progress Notes Filed: 05/13/2023 3:16 PM [...] Page, OD May 13, 2023 3:15 PM [facility] Evaluation + Plan note Note Date & Type Note Facility Evaluation + Plan note [facility] Hospital course Narrative Note Date & Type Note Facility Hospital course Narrative No data available for this section [facility] Progress note Note Date & Type Note Facility Progress note No data available for this section [facility] Reason for referral (narrative) Note Date & Type Note Facility Reason for referral (narrative) Referred by: Aashish CONWAY DO, FAAFP [facility] Summary Purpose Family History [...] section and content) DATE CREATED AUTHOR 05/15/2023 [facility] DATE CREATED AUTHOR AUTHOR'S ORGANIZ ATION 12/23/2023 [facility] DATE CREATED AUTHOR AUTHOR'S ORGANIZ ATION 01/06/2024 [facility] Patient Care team informatio n (unrecognized section and content) Personnel Name: Aashish CONWAY DO, FAAFP Address: Address: [address] [place] [address] Personnel Name: Aashish CONWAY DO, FAAFP Address: Address: [address] [place] [address] FOR RECORDS PERTAINING TO PATIENTS WHO ARE [...] BE BASED ON THE PRIMARY CLINICAL RECORDS. [facility] [employer] [facility]. provides no warranty or guarantee of the accuracy or completeness of information in this document.
[2024-06-12 07:18] LABS: Basophils Percent Auto 0.5 % (0.2-2.0); Eosinophils Absolute Auto 0.2 10^3/uL (0.0-0.7); Eosinophils Percent Auto 2.6 % (0.9-7.0); Hematocrit 45.1 % (42.0-54.0); Hemoglobin 15.2 g/dL (14.0-18.0); Immature Granulocytes Abs Auto 0.03 10^3/uL (0.00-0.03); Immature Granulocytes Pct Auto 0.4 % (0.0-0.5); Lymphocytes Absolute Auto 2.5 10^3/uL (1.2-3.8); Lymphocytes Percent Auto 32.8 % (20.5-60.0); Mean Corpuscular HGB Conc 33.7 g/dL (29.9-35.2); Mean Corpuscular Hemoglobin 30.4 pg (25.9-34.0); Mean Corpuscular Volume 90.2 fL (80.0-94.0); Mean Platelet Volume 9.9 fL (9.5-13.5); Monocytes Absolute Auto 0.7 10^3/uL (0.3-0.8); Monocytes Percent Auto 9.2 % (1.7-12.0); Neutrophils Absolute Auto 4.1 10^3/uL (1.4-6.5); Neutrophils Percent Auto 54.5 % (43.0-75.0); Platelet Count 201 10^3/uL (150-450); Red Cell Distribution Width 12.3 % (11.0-15.0); White Blood Count 7.6 10^3/uL (4.0-11.0)
[2024-06-12 07:44] LABS: Glucometer 121 mg/dL (74-106)
[2024-06-12] MEDS: LACTATED RINGER'S SOLUTION 1,000 ML 50 ML IV (07:44)
--- NOTE | 2024-06-12 08:19 | PC.NURSE ---
0759 TIME OUT PERFORMED 10MG PRESIDEX, 2 MG VERSED, 50 MCG FENTYNAL INJECTED AT THIS TIME. 0804 LOOKING WITH ULTRA SOUND TO LOCATE INJECTION SITE 0805 CLEANSED AREA AND INJECTED LIDOCAINE 806 INJECTION AT SITE 808 BLOCK COMPLETED 809 LOOKING FOR THE SECOND SITE FOR THE BLOCK SAPHENOUS, INJECTIN BEGAN AND 76725 COMPLETED. PATIENT TOLERATED WELL.
[2024-06-12] MEDS: CEFAZOLIN SODIUM 2 GM/50 ML D5W PREMIX IV (08:55)
--- NOTE | 2024-06-12 09:07 | PM.ORONB ---
Brief Operative Note Date of procedure: 06/12/24 Pre-op diagnosis general: Right hallux valgus, hammertoes 2-5, retained orthopedic hardware right foot Post-op diagnosis: same as pre-op Procedure: Procedure performed: Right first metatarsal phalangeal joint fusion, second metatarsal osteotomy, correction of hammertoes 2 & 5 with PIPJ arthroplasty, & removal of deep implanted orthopedic hardware, application of short leg splint Indications for procedure: Patient is a 64-year-old male who underwent bunion & hammertoe correction [place] [address] Michel. Unfortunately roughly a year after his surgery he noticed pain and deformity recurring which is only worsened over the last 10 years and now is affecting activities of daily living and recreation. He attempted shoe and activity modification, orthotics and OTC pain medicine without much help. He presented to me for second opinion and I discussed the potential risks and benefits of the above procedure as well as the postoperative course. Patient has elected to undergo the above procedures. Intraoperative findings: Nonreducible hallux valgus deformity with contracture of the extensor hallucis longus tendon. Full-thickness cartilage degeneration noted on the lateral aspect of the first metatarsal phalangeal joint. Bone quality was somewhat soft and there was a significant amount of scar tissue and soft tissue contracture.. Hardware was stable and previous osteotomies were healed. Plantarflexion contracture at PIPJ's and dorsiflexion contracture at the MPJs of the second toe. After arthroplasty of the second toe the MPJ did not reduce however second metatarsal osteotomy allowed full correction of the second toe. The second extensor tendon was contracted and required lengthening. 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 Procedure in detail: Patient was identified in preop holding by myself which time correct side and site were marked and consent was obtained. Regional anesthesia was performed by the anesthesia team and the patient was brought back to the operating theater and placed on table in supine position with a thigh tourniquet. The right lower extremity was prepped and draped in usual sterile fashion and formal timeout was performed. The right lower extremity was exsanguinated and the tourniquet was inflated. Incision was placed parallel to the extensor tendon over the distal first metatarsal and proximal phalanx base of the great toe. Combination sharp and blunt dissection gained access to the capsule of the first MPJ which was sharply released then a McGlamery elevator was used to fully release the joint. A staple in the great toe was removed with the help of a osteotome and pliers. Cup and cone reamers were used to prepare the first metatarsal head and proximal phalanx base for fusion removing cartilage and subchondral bone. Surgical site was irrigated with copious saline. 1 cc of bone allograft was placed into the fusion site and the great toe was pinned in a reduced position. Position was checked on fluoroscopy as well as on the table then a 3.5 mm cannulated screw was placed from the medial aspect of the proximal phalanx base and into the lateral cortex of the first metatarsal spanning the first MPJ. Then a 3.5 mm locking first MPJ fusion plate was temporarily fixated in position checked on the table and under fluoroscopy. Then nonlocking and locking screws were placed accordingly. All temporary fixation was removed. Position of the great toe and hardware was again checked and noted to be satisfactory. Surgical site was irrigated with copious saline. A dorsal incision over the 2nd digit and extended over the 2nd metatarsal was undertaken. Then sharp and blunt dissection gained access to the extensor tendon which was transected at the level of the PIPJ then was reflected to allow access into the proximal inner phalangeal joint. A sagittal saw was used to remove a small portion of the proximal phalanx head. Then sharp and blunt dissection was used to exposed the 2nd metatarsal phalangeal joint. A McGlammry elevator was utilized to expose the 2nd metatarsal head and a sagittal saw was used to create an osteotomy parallel to the weightbearing surface of the foot. The metatarsal head was then translated proximally and temporarily fixated with a K wire and the elevator was removed. Position was checked under fluoroscopy followed by a 2.0 mm snap off screw which was placed from a dorsal plantar direction. A rongeur was used to remove the dorsal cortical shelf. Temporary fixation was removed. Surgical site was irrigated with copious amounts of sterile saline. A 1.6 mm K wire was then placed through the toe and into the metatarsal in an ideal position. Position was checked under fluoroscopy the K wire was then cut and bent. Upon reapproximating the extensor tendon it was noted to be very contracted which would further induce deformity therefore decision was made to perform a Z-lengthening of the second extensor tendon which was then repaired at the level of the PIPJ. Surgical site was irrigated with copious saline. An elliptical incision was created over the PIPJ of fifth toe. Extensor tendon was incised and reflected to expose the PIPJ. Periarticular ligaments were released. Sagittal saw was use to excised the head of proximal phalanx. The site was irrigated with copious amounts of sterile saline. The extensor tendon was repaired with absorbable stitch and skin was closed with non-absorbable suture. Then layered closure was performed and the tourniquet was dropped with a prompt hyperemic response. A dry sterile dressing and a multilayer modified Verma posterior splint was applied. Patient tolerated the procedure and anesthesia well and was transferred to the recovery room with vital signs stable and brisk capillary refill to all 5 toes. Postoperative plan: Discharge home under brother's care Nonweightbearing operative foot but may place partial weight to the right heel for balance/transfers Keep splint clean dry and intact Prescriptions were sent to his pharmacy using my office EMR Follow-up in my office in 1 week for hopeful transition to a cam boot Implants: Medline 3.5 mm cannulated screw and 3.5 mm first MPJ fusion plate Anesthesia: regional and General-LMA Surgeon: Franklin Aguilar Slab Depiler Operator: Ruby Royal Estimated blood loss (mL): 10 Pathology: none sent Condition: stable Disposition: PACU
--- NOTE | 2024-06-12 09:18 | XR_ITS ---
The [address] [address] Patient Name: BOB LIMA MRN: [id number] date: 1960 Sex: M Assigned Patient Location: [facility] Current Patient Location: Accession/Order Number: [id number] Exam Date: 06/12/2024 11:40 Report Date: 06/13/2024 05:30 At the request of: BOB BREWER Procedure: XR foot RT min 3V PROCEDURE: XR foot RT min 3V HISTORY: hallux valgus COMPARISON: None. FINDINGS: BONES:Interval removal of bone staple within first proximal phalanx and screw from the first metatarsal. New mechanical fusion of first metatarsophalangeal joint via dorsal plate and screws. K wires securing the joints of the second toe and placement of a screw within head of second metatarsal. SOFT TISSUES:Images were obtained to cast material which limits evaluation. EFFUSION:None visible. OTHER: Negative. XR/XR foot RT min 3V IMPRESSION: 1. Surgical revision resulting mechanical fusion of first metatarsophalangeal joint. 2. New fixation of second toe. Electronically authenticated by: JANIS RAYGOZA Date: 06/13/2024 05:30
[2024-06-12 11:50] LABS: Glucometer 171 mg/dL (74-106)
--- NOTE | 2024-06-12 12:07 | PC.NURSE ---
extremity elevated and ice placed behind knee
== END 2024-06-12 13:24 | disposition home or self-care (01) ==
PROVIDERS: Anesthesiology; PCP Family Medicine; Visit Provider Podiatrist Foot & Ankle Surgery
PROC: (CPT 1480; principal; 2024-06-12 08:30)
DX: M20.11 Hallux valgus (acquired), right foot (principal); M20.41 Other hammer toe(s) (acquired), right foot; Z96.9 Presence of functional implant, unspecified; M20.5X1 Other deformities of toe(s) (acquired), right foot
CPT/HCPCS: 20680; 28285 ×2; 28750; 36415; 64445; 64450; 73630; 76000; 76942; 82948; 85025; C1713; J0131; J0690; J1100; J1885; J2250; J2371; J2405; J2704; J2795; J3010

== ENCOUNTER 2024-07-05 13:03 | Outpatient (OUT) | payer MEDICAID, SELFPAY ==
--- NOTE | 2024-07-05 | XR_ITS ---
The [place] [address] Patient Name: BOB LIMA MRN: [id number] date: 1960 Sex: M Assigned Patient Location: [facility] Current Patient Location: Accession/Order Number: [id number] Exam Date: 07/06/2024 10:36 Report Date: 07/06/2024 10:41 At the request of: BOB BREWER DPM Procedure: XR foot RT min 3V RIGHT FOOT - 3 views COMPARISON: 05/23/2024 and 06/12/2024 (intraoperative) CLINICAL DATA: Follow-up postoperative changes Weightbearing AP, lateral and oblique views were obtained. There is fusion at the first metatarsal phalangeal joint with a dorsal plate and multiple screws. A screw is also seen at the head of second metatarsal. There is a K wire which traverses the phalanges of the second toe extending into the distal metatarsal. In addition, there is interval amputation of the head of the proximal phalanx of the fifth toe. There is suggestion of old amputation of the head of the proximal phalanx the 4th toe and deformity at the head of the proximal phalanx of the third toe which is unchanged. There is no developing fracture or dislocation. There are no significant soft tissue abnormalities. XR/XR foot RT min 3V IMPRESSION: POSTOPERATIVE CHANGES, SIMILAR TO THE INTRAOPERATIVE COMPARISON. NO ACUTE BONY FINDINGS. Impression dictated by: Ginny Colindres M.D.07/06/2024 10:41 AM Dictation Location: [place] [address] Electronically authenticated by: [id number] Y Date: 07/06/2024 10:41
== END 2024-07-05 13:04 | disposition home or self-care (01) ==
LOC: RAD 13:03
PROVIDERS: PCP Family Medicine; Visit Provider Podiatrist Foot & Ankle Surgery
DX: M79.671 Pain in right foot (principal); M24.674 Ankylosis, right foot
CPT/HCPCS: 73630

== ENCOUNTER 2024-07-19 13:07 | Outpatient (OUT) | payer MEDICAID, SELFPAY ==
--- NOTE | 2024-07-19 13:12 | XR_ITS ---
The [place] [id number] Patient Name: BOB LIMA MRN: [id number] date: 1960 Sex: M Assigned Patient Location: [facility] Current Patient Location: [facility] Accession/Order Number: [id number] Exam Date: 07/19/2024 23:30 Report Date: 07/19/2024 23:32 At the request of: BOB BREWER DPM Procedure: XR foot RT min 3V RIGHT FOOT - 3 views CLINICAL HISTORY: Follow-up surgery COMPARISON: Right foot series 07/05/2024. FINDINGS: Pin has been removed from the second digit. Remaining hardware involving the first and second digits demonstrate no hardware complication. No acute fracture is seen. No bony erosions. XR/XR foot RT min 3V IMPRESSION: PATIENT HAS BEEN REMOVED FROM THE SECOND DIGIT. REMAINING HARDWARE DEMONSTRATES NO COMPLICATION. Impression dictated by: Jcarlos Avelar Jr., DLeroyOLeroy07/19/2024 11:32 PM Dictation Location: [employer] Electronically authenticated by: [id number] Y Date: 07/19/2024 23:32
--- OUTSIDE RECORDS SUMMARY | 2024-07-19 13:18 | XMS_ITS | CCD ---
Author Organization [facility] Care Team Providers Care Barrel Inspector Tight Name Role Phone CLEMENTINE PAGE Attending Unavailable Aashish CONWAY Primary Care Physician [phone] JARRELL HEBERT Attending Unavailable AASHISH CONWAY Referring [...] symptoms, # 30 cap(s), Refills(s) 0, [facility], [facility], cm, 12/25/23 17:13:00 EDT, [...] Daily, # 90 tab(s), Refills(s) 3, [facility], 182, cm, 10/25/23 12:56:00 EDT, Height/Length Dosing, 99.8, kg, 10/25/23 12:56:00 EDT, Weight Dosing Start Date: 10/25/23 Status: Ordered montelukast 10 mg oral tablet (2 sources) Leukotriene Receptor Antagonist Start: 10-25-2023 take 1 tablet by mouth once daily Singulair 10 mg Tab 10 mg = 1 tab(s), Oral, Daily, # 90 tab(s), Refills(s) 3, Pharmacy: [facility], 182, cm, 10/25/23 12:56:00 EDT, Height/Length Dosing, 99.8, kg, 10/25/23 12:56:00 EDT, Weight Dosing Start Date: 10/25/23 Status: Ordered predniSONE 20 mg oral tablet (1 source) Start: 12-25-2023 End: 12-29-2023 take 3 tablets by mouth once daily predniSONE 20 mg Tab 60 mg = 3 tab(s), Oral, Daily, X 4 day(s), # 12 tab(s), Refills(s) 0, Pharmacy: [facility], 182, cm, 12/25/23 17:13:00 [...] symptoms, # 30 cap(s), Refills(s) 0, Pharmacy: [facility], 182, cm, 12/25/23 17:13:00 EDT, Height/Length Dosing, 101.7, kg, 12/25/23 17:13:00 EDT, Weight Dosing famotidine, 40 mg = 2 tab(s), Tab, Oral, Once, Stop date 12/25/23 17:42:00 EDT, STAT, Start date 12/25/23 17:42:00 EDT, 12/25/23 17:42:00 EDT predniSONE, 60 mg = 3 tab(s), Oral, Daily, X 4 day(s), # 12 tab(s), Refills(s) 0, Pharmacy: [facility], 182, cm, 12/25/23 17:13:00 [...] CONWAY In 3 days 12/28/[address] [place], (more content not included)... Normal [facility] Comment on above: Result Comment: Elec tronically Signed By: Silverio Chen PA-C\.br\Date and Time Signed: 12/25/23 21:28 EDT\.br\Electronically Co-Signed By: Jimy Shook DO\.br\Date and Time Co-Signed: 01/05/24 06:43 EDT ED Clinical Summaryon 2023 ED Clinical Summary ED Clinical Summary [address] [address] ED Clinical Summary Person Information Name: BOB LIMA Briana/[facility] Age: 63 Years : 1960 Sex: Male Language: Anguillan PCP: Aashish CONWAY DO, FAAFP Marital Status: [...] 12/25/2023 19:05:59 12/25/2023 19:05:59 12/25/2023 19:05:59 ADDRESS: [address] [place] [address] [address] [place] [id number] PHYS DOC NOTES: MEDICAL INFORMATION: Prescriptions Given: New Medications [facility], [address] [place], [place] [id number], [phone] diphenhydrAMINE (diphenhydrAMINE 25 mg Cap) 1 Capsules [...] Follow up: With: Address: When: Aashish Logan [facility], [facility] [place] [id number] [facility] (1) In 3 days 12/28/2023 DIAGNOSIS: Bee sting reaction Normal [facility] ED Patient Summaryon ED Patient Summary ED Patient Summary [address] [address] Patient Discharge Instructions Person Information Name: BOB LIMA Age: 63 Years Arrival Date: 12/25/2023 17:07:15 Discharge Diagnosis: Bee sting reaction Primary Care Physician: Aashish CONWAY DO, FAAFP Provider Information Primary Provider: Jimy Shook DO [employer] Attacher:Silverio Chen PA-C. The exam and treatment you received in the Emergency Department were for an urgent problem and are not intended as complete care. It is important that you follow up with a doctor, nurse practitioner, or physician?s assistant superintendent for curriculum for ongoing care. If your symptoms become [...] Instructions: With: Address: When: Aashish [place], [facility] [place] [address] [facility] (1) In 3 days 12/28/2023 In the event that this physician does not participate in your insurance network, please consult with your insurance company to find a nearby participating provider. Patient Education Materials: Bee, Wasp, or Hornet Sting, Adult A MESSAGE TO ALL PATIENTS REGARDING OPIOIDS PRESCRIPTION OPIOIDS: WHAT YOU NEED TO KNOW Prescription opioids can be used to help relieve haiszxnz-ke-vtjyem pain and are often prescribed following a [...] be struggling with addiction, tell your health career advisor and ask for guidance or call [facility] [place] Help (more content not included)... Normal [facility] Physician Referralon 024 Physician Referral [id number]#1.00TIFF Normal [facility] Family Medicine Office/Clini c Noteon 10-25-2023 Family [...] kicking my butt, the Singulair helps the [place] is the worst is getting toward the [...] labeling, # 21 tab(s), Refills(s) 1, Pharmacy: [facility], 182, cm, 07/19/23 11:42:00 EST, Height/Length Dosing, 102.2, kg, 07/19/23 11:42:00 EST, Weight Dosing 2. Left lumbar radiculitis (M54.16: Radiculopathy, lumbar region) see 1 Ordered: methylPREDNISolone, = 1 packet(s), Oral, As Directed, as directed on package labeling, # 21 tab(s), Refills(s) 1, Pharmacy: [facility], 182, cm, 07/19/23 11:42:00 [...] weight manageme (more content not included)... Normal [facility] Comment on above: Result Comment: Elec tronically [...] at home: Medicines ? Take or apply lzqp-ujw-rpatjlk and prescription medicines only as told by [...] the hospital. Summary ? Take or apply bmvd-jje-cdpcxqw and prescription medicines only as told by [...] a row for (more content not included)... [facility] PT - Assessmentson 4 PT - Assessments [id number]#1.00TIFF [facility] PT - Home Exercise Programon 08-19-2023 PT - Home Exercise Program [id number]#1.00TIFF [facility] PT - Home Exercise Programon 08-10-2023 PT - Home Exercise Program [id number]#1.00TIFF [facility] PT - Home Exercise Programon 07-29-2023 PT - Home Exercise Program [id number]#1.00TIFF [facility] Consent for Treatmenton Consent for Treatment [id number]#1.00TIFF [facility] PT - Assessmentson PT - Assessments [id number]#1.00TIFF [facility] PT - Consentson 07-22-2023 PT - Consents [id number]#1.00TIFF [facility] PT - Home Exercise Programon 07-22-2023 PT - Home Exercise Program [id number]#1.00TIFF [facility] Ambulatory Visit [...] hernia, History of repair of umbilical hernia, [place] tooth. Discharge Vitals Temperature (Temporal Artery) 36.7 ?C Heart Rate (Peripheral) 74 Respiratory Rate 18 Blood Pressure 134/82 Height 182 cm Height 72 in Weight 102.2 kg Weight 224.84 lb BMI 30.85 What to do next You Need to Schedule the Following Appointments Follow Up with Aashish CONWAY DO, FAAFP, JULIUS, PED When: In 3 months Where: [address] [facility] [place] [address]- Medications What How Much When Why Instructions New amoxicillin-clavulanate (Augmentin 875 mg oral tablet) 1 Tablets By Mouth Every 12 hours Frontal sinusitis Duration: 10 Days Pickup at [facility] 1985 New methylPREDNISolone (Medrol 4 mg Tab) 1 Packets By Mouth As Directed Left lumbar radiculitis Sciatica of left side Refills: 1 as directed on package labeling Pickup at [facility] 1985 Unchanged ascorbic acid (Vitamin C 500 mg Tab) 1 Tablets By Mouth Every day Unchanged fluticasone nasal (Flonase 0.05 mg/ inh nasal spray) 50 Microgram Nasal Inhalation 2 times a day Unchanged loratadine 10 Milligram By Mouth Every day Unchanged montelukast (Singulair 10 mg Tab) 1 Tablets By Mouth Every day Pharmacy Information [facility] 1986: [address] [place], [place] [id number] [phone] Allergies No Known Allergies Problems Ongoing - [...] tailbone toward (more content not included)... Normal [facility] BMPon 07-19-2023 Anion gap [Moles/Vol] 13 mmol/L Normal 6-16 [facility] Comment on above: Performed By: #### 2 359392, 21413653, 0475714, 9560607, 5901637, 24997983, [id number] ####[facility] [address] [place] [address] Calcium [Mass/Vol] 9.6 mg/dL Normal 8.9-11.1 [facility] Comment on above: Performed By: #### 2 698013, 56819773, 4220215, 2374527, 1306422, 08306161, 835310057 ####[facility] [address] [place] [address] Chloride [Moles/Vol] 102 mmol/L Normal 101-111 [facility] Comment on above: Performed By: #### 2 437243, 88134654, 4066263, 7051441, 9692617, 49173345, 780562253 ####[facility] [address] [place] [address] CO2 [Moles/Vol] 28 mmol/L Normal 21-31 [facility] Comment on above: Performed By: #### 2 168444, 76770945, 9099950, 0204689, 6927456, 16660559, 629745987 ####[facility] [address] [place] [address] Creatinine [Mass/Vol] 1.1 mg/dL Normal 0.5-1.3 [facility] Comment on above: Performed By: #### 2 354052, 90732158, 4601665, 2429321, 9237516, 32396095, 834853838 ####[facility] [address] [place] [address] Glucose [Mass/Vol] 83 mg/dL Normal 55-199 [facility] Comment on above: Performed By: #### 2 493166, 36512589, 7866442, 8330868, 3930748, 68107809, 708788753 ####[facility] [address] [place] [address] Potassium [Moles/Vol] 4.3 mmol/L Normal 3.5-5.3 [facility] Comment on above: Performed By: #### 2 990125, 71579606, 4840138, 0918847, 6515359, 42809105, 538063349 ####[facility] [address] [place] [address] Sodium [Moles/Vol] 139 mmol/L Normal 135-145 [facility] Comment on above: Performed By: #### 2 263523, 93367305, 0521641, 4293943, 0161562, 29323929, 443646116 ####[facility] [address] [place] [address] Urea nitrogen [Mass/Vol] 15 mg/dL Normal 5-21 [facility] Comment on above: Performed By: #### 2 032124, 57003597, 5226619, 8809884, 8593870, 69373697, 268773172 ####[facility] [address] [place] [address] Urea nitrogen/Creatini ne [Mass ratio] 14 No Units Normal 10-20 [facility] Comment on above: Performed By: #### 2 580252, 75138592, 1918943, 4184580, 7237678, 42946657, 983536613 ####[place] [address] [place] [address] CBC w/ Auto Diffon 4 Basophils/100 WBC (Bld) 0.5 % Normal 0.0-2.0 [facility] Comment on above: Performed By: #### 2 990671, 33897963, 1447584, 2631475, 7969737, 82201396, 484129301 ####[address] [address] Basophils/Leukocy les Auto (Bld) [Pure # fraction] 0.0 E9/L Normal 0.0-0.2 [facility] Comment on above: Performed By: #### 2 782829, 69499727, 7064030, 7925691, 3577158, 81499354, 972382242 ####[address] [address] Eosinophils (Bld) [#/Vol] 0.2 E9/L Normal 0.0-0.5 [facility] Comment on above: Performed By: #### 2 607807, 69508158, 9425188, 9229166, 8519389, 59256601, 040840937 ####[address] [address] Eosinophils/100 WBC (Bld) 2.4 % Normal 0.0-8.0 [facility] Comment on above: Performed By: #### 2 403763, 53314962, 5003152, 7793768, 8726579, 09904407, 096154254 ####[address] [address] Erythrocyte distribution width (RBC) [Ratio] 13.4 % Normal 10.9-14.2 [facility] Comment on above: Performed By: #### 2 565606, 64738982, 5225249, 3370421, 6290247, 37391816, 342122241 ####[facility] [address] [place] [address] Hematocrit (Bld) [Volume fraction] 44.0 % Normal 37.7-49.0 [facility] Comment on above: Performed By: #### 2 352077, 89688661, 1573768, 8330591, 1287289, 24112722, 558203090 ####[place] [place] [address] Hemoglobin (Bld) [Mass/Vol] 14.7 g/dL Normal 13.5-17.5 [facility] Comment on above: Performed By: #### 2 338764, 12405407, 8066354, 7379765, 8292281, 20553223, 710103815 ####[address] [address] Lymphocytes (Bld) [#/Vol] 2.2 E9/L Normal 1.0-4.0 [facility] Comment on above: Performed By: #### 2 301227, 62076860, 4342586, 0843239, 6734585, 86902593, 886755137 ####[address] [address] Lymphocytes/100 WBC (Bld) 26.5 % Normal 14.0-50.0 [facility] Comment on above: Performed By: #### 2 461138, 13908431, 1471015, 2063301, 8371650, 15229747, 875064610 ####[place] [address] [place] [address] MCH (RBC) [Entitic mass] 30.0 pg Normal 27.0-34.0 [facility] Comment on above: Performed By: #### 2 229506, 45131488, 2733118, 9438316, 0700300, 33567936, 504446774 ####[address] [address] MCHC (RBC) [Mass/Vol] 33.4 g/dL Normal 31.4-36.0 [facility] Comment on above: Performed By: #### 2 498629, 99978822, 5443965, 5730528, 2387332, 19376767, 630124279 ####[facility] [address] [place] [address] MCV (RBC) [Entitic vol] 89.7 fL Normal 80.0-100.0 [facility] Comment on above: Performed By: #### 2 273152, 42476327, 0891751, 6652211, 1838017, 99433268, 398063189 ####[address] [place] [address] Monocytes (Bld) [#/Vol] 0.7 E9/L Normal 0.2-1.0 [facility] Comment on above: Performed By: #### 2 342783, 73024700, 6345711, 0610553, 9979258, 97961943, 133787493 ####[address] [address] Neutrophils (Bld) [#/Vol] 5.1 E9/L Normal 2.0-7.5 [facility] Comment on above: Performed By: #### 2 530772, 08769187, 5247881, 2653979, 9641039, 25451832, 713659756 ####[address] [address] Neutrophils/100 WBC (Bld) 62.4 % Normal 36.0-75.0 [facility] Comment on above: Performed By: #### 2 456709, 60503980, 0057046, 4769150, 2885649, 01870225, 829286658 ####[address] [place] [address] Platelet 256.0 E9/L Normal 150.0-500.0 [facility] Comment on above: Performed By: #### 2 576108, 31964565, 0201965, 1372197, 4721955, 29675810, 037633330 ####[facility] [address] [place] [address] Platelet mean volume (Bld) [Entitic vol] 8.1 fL Normal 6.4-10.8 [facility] Comment on above: Performed By: #### 2 776022, 26623491, 5055952, 0773129, 8264714, 60350245, 365098362 ####[facility] [address] [place] [address] RBC (Bld) [#/Vol] 4.9 E12/L Normal 4.3-5.9 [facility] Comment on above: Performed By: #### 2 854482, 90217024, 4695740, 1251618, 1836193, 97111977, 109555366 ####[place] [address] [place] [address] WBC corrected for nucl RBC Auto (Bld) [#/Vol] 8.2 E9/L Normal 4.0-11.0 [facility] Comment on above: Performed By: #### 2 610403, 14494988, 1362272, 3263100, 9249979, 50100526, 341816552 ####[facility] [address] [place] [address] Consent for Treatmenton Consent for Treatment [id number]#1.00TIFF Normal [facility] Family Medicine Office/Clini c Noteon 07-19-2023 Family [...] day(s), # 20 tab(s), Refills(s) 0, Pharmacy: [facility], 182, cm, 07/19/23 11:42:00 [...] as di (more content not included)... Normal [facility] Comment on above: Result Comment: Elec tronically Signed By: MAN LEAL FAAFP, Aashish Vasquez\chris\Date and Time Signed: 07/19/23 12:47 EST Hep Func Panelon 07-19-2023 Albumin [Mass/Vol] 4.3 g/dL Normal 3.3-5.0 [facility] Comment on above: Performed By: #### 2 984491, 88225465, 4175762, 3821017, 5421367, 25069583, 914520793 ####[facility] [address] [place] [address] Albumin/Globulin (S) [Mass conc ratio] 1.5 Normal 1.1-2.2 [facility] Comment on above: Performed By: #### 2 967320, 09130490, 4632233, 8593318, 4537663, 35623930, 374996587 ####[facility] [address] [place] [address] ALP [Catalytic activity/Vol] 54 Int._Unit/L Normal 21-98 [facility] Comment on above: Performed By: #### 2 230358, 72454598, 6016679, 3908263, 7115197, 11898006, 985892902 ####[facility] [address] [place] [address] ALT No additional P-5'-P [Catalytic activity/Vol] 27 Int._Unit/L Normal 6-46 [facility] Comment on above: Performed By: #### 2 092318, 39690507, 3447265, 4655867, 5147568, 84632537, 021580131 ####[facility] [address] [place] [address] AST [Catalytic activity/Vol] 26 Int._Unit/L Normal 5-43 [facility] Comment on above: Performed By: #### 2 404084, 19701072, 1860125, 6889989, 1503393, 05220310, 965081199 ####[facility] [address] [place] [address] Bilirubin [Mass/Vol] 0.6 mg/dL Normal 0.0-1.1 [facility] Comment on above: Performed By: #### 2 218672, 86086611, 8827028, 2052603, 1880275, 49034676, 857648383 ####[facility] [address] [place] [address] Bilirubin.direct [Mass/Vol] 0.1 mg/dL Normal 0.0-0.4 [facility] Comment on above: Performed By: #### 2 578663, 20761567, 0394267, 7162329, 8046533, 21870491, 772497817 ####[facility] [address] [place] [address] Bilirubin.indirec t [Mass or moles/Vol] 0.5 mg/dL Normal 0.1-0.9 [facility] Comment on above: Performed By: #### 2 336456, 06579419, 1726246, 5761319, 6328709, 86698336, 254651326 ####[facility] [address] [place] [address] Globulin (S) [Mass/Vol] 2.9 g/dL Normal 1.4-4.0 [facility] Comment on above: Performed By: #### 2 493040, 97073325, 5087845, 9245949, 7549219, 29103253, 505337175 ####[facility] [address] [place] [address] Protein [Mass/Vol] 7.2 g/dL Normal 6.0-7.8 [facility] Comment on above: Performed By: #### 2 721734, 38596784, 1119629, 7316075, 7289683, 58152501, 541018252 ####[facility] [address] [facility], [place] [address] OukU3zxw 07-19-2023 HbA1c (Bld) [Mass fraction] 5.7 % Normal <=5.9 [facility] Comment on above: Performed By: #### 2 551062, 80924484, 1212720, 7438029, 7796740, 09409105, 675933025 ####[facility] [address] [facility] [place] [address] Lipid Panelon 07-19-2023 Cholesterol [Mass/Vol] 166 mg/dL Normal 120-200 [facility] Comment on above: Performed By: #### 2 219724, 72003839, 7633292, 1421894, 0884009, 16240843, 551532461 ####[facility] [address] [place] [address] Cholesterol in HDL [Mass/Vol] 34 mg/dL Invalid Interpretation Code [facility] Comment on above: Result Comment: '>= 60 LOW RISK' '<= 40 HIGH RISK' Performed By: #### 2 884614, 82899439, 5554205, 1304448, 2512309, 29995402, 216973598 ####[facility] [address] [place] [address] Cholesterol in LDL [Mass/Vol] 87 mg/dL Normal <=129 [facility] Comment on above: Performed By: #### 2 687003, 15388573, 2999290, 4272098, 7195796, 54828911, 273508471 ####[facility] [address] [place] [address] Cholesterol in VLDL [Mass/Vol] 51 mg/dL High 7-40 [facility] Comment on above: Performed By: #### 2 765119, 74500447, 5333262, 4578970, 0949677, 61634699, 521273129 ####[facility] [address] [place] [address] Triglyceride [Mass/Vol] 254 mg/dL High <=149 [facility] Comment on above: Performed By: #### 2 887620, 55646933, 8644592, 7396732, 7405127, 49242875, 443577445 ####[facility] [address] [place] [address] PSA Screen, Totalon 07-19-19 24 Prostate specific Ag [Mass/Vol] 0.5 ng/mL Normal 0.1-3.5 [facility] Comment on above: Result Comment: The concentration of PSA determined by different manufacturers can vary due to differences in assay methods and reagent specificity. Values obtained from different assay methods cannot be used interchangeably. The methodology used for this result was chemiluminescence using [employer]'s Access Hybritech PSA reagent. Performed By: #### 2 514320, 31943001, 2247010, 3055780, 0530763, 74297920, 957990169 ####[facility] [address] [place] [address] Patient Educationon 07-19-19 24 Patient Education Orthopedics [...] the exercise (more content not included)... Normal [facility] eGFRon 07-19-2023 eGFR 76 mL/min/1.73 m2 Normal >=59 [facility] Comment on above: Order Comment: Order added by Discern Expert. Performed By: #### 2 573350, 30676066, 9818570, 1443338, 7127910, 99807332, 009776860 ####[facility] [address] [place] [address] Vital Signs Date Time Vital Sign Value Performing Clinician Rachel [facility]aiser 12-25-2023 17:11-0400 Body temperature 97.88 [degF] Jimy Shook [facility] 12-25-2023 17:11-0400 Diastolic blood pressure 101 mm[Hg] Jimy Shook [facility] 12-25-2023 17:11-0400 Heart rate 70 /min Jimy Shook [facility] 12-25-2023 17:11-0400 Respiratory rate 16 /min Jimy Shook [facility] 12-25-2023 17:11-0400 SaO2% (BldA) [Mass fraction] 94 % Jimy Shook [facility] 12-25-2023 17:11-0400 Systolic blood pressure 163 mm[Hg] Jimy Shook [facility] 10-25-2023 12:50-0400 Blood Pressure Location Aashish CEELE [facility] 10-25-2023 12:50-0400 Body temperature 97.88 [degF] Aashish [facility] 10-25-2023 12:50-0400 Diastolic blood pressure 70 mm[Hg] Aashish [facility] 10-25-2023 12:50-0400 Heart rate 74 /min Aashish [facility] 10-25-2023 12:50-0400 Respiratory rate 18 /min Aashish KAPLE [facility] 10-25-2023 12:50-0400 SaO2% (BldA) [Mass fraction] 98 % Aashish CONWAY [facility] 10-25-2023 12:50-0400 Systolic blood pressure 120 mm[Hg] Aashish CONWAY [facility] Encounters Encounter Date Encounter Type Care Provider Facility Start: 12-25-2023 End: 12-25-2023 Emergency department patient visit Jimy Michael Shook [facility] Start: 12-21-2023 End: 12-21-2023 ambulatory JARRELL HEBERT Not Available Start: 10-25-2023 End: 10-25-2023 ambulatory Aashish CONWAY Facility:[facility] Start: 10-25-2023 End: 10-25-2023 Patient encounter procedure Aashish CONWAY [facility] Start: 07-22-2023 End: 11-14-2023 ambulatory Aashish CONWAY Facility[place] Start: 07-19-2023 End: 07-19-2023 ambulatory Aashish CONWAY Facility:[facility] Start: 07-19-2023 End: 07-19-2023 ambulatory Aashish CONWAY Facility:[facility] Start: 05-13-2023 End: 05-13-2023 ambulatory CLEMENTINE PAGE Facility:[facility] Procedures Date Procedure Procedure Detail Performing [...] cility 08-06-2023 zoster vaccine recombinant Aashish CONWAY [facility] 05-01-2023 zoster vaccine recombinant Aashish CONWAY [facility] 08-24-2020 SARS-CoV-2 (COVID-19 ) mRNA-1273 vaccine Aashish CONWAY [facility] 07-27-2020 SARS-CoV-2 (COVID-19 ) mRNA-1273 vaccine Aashish CONWAY [facility] 03-06-2014 influenza virus vaccine, unspecified formulation Aashish CONWAY [facility] 12-01-2007 tetanus toxoid, reduced diphtheria toxoid, and acellular pertussis vaccine, adsorbed Aashish CONWAY [facility] NEGATED: Highlighted row has not occurred!05-26-2019 influenza virus vaccine, live, attenuated, for intranasal use Aashish CONWAY [facility] NEGATED: Highlighted row has not occurred!03-17-2019 influenza virus vaccine, unspecified formulation Aashish CONWAY [facility] Payers Date Payer Category Payer Medicaid [id number] 1960 Unknown [id number] 1960 Unknown [id number] 2.16.8 [id number] 1960 Unknown [id number] 2.16.8 [id number] 1960 Unknown [id number] 2.16.8 [id number] 1960 Unknown [id number] 2.16.8 [id number] 1960 Unknown [id number] 2.16.8 [id number] Social History Date Type Detail Facility Start: 10-25-2023 Tobacco smoking status Never s moked tobacco (finding) [facility] Tobacco smoking status Never [facility] Sex Assigned At Male [facility] Functional Status Date Assessment Result Facility 12-25-2023 Functional Status N/A [facility] 10-25-2023 Functional Status N/A [facility] Discharge instructions [...] your health care provider. Apply or take soin-tlu-vvrazzu and prescription medicines only as told by [...] provider. Document Revised: 06/30/2022 Document Reviewed: 06/30/2022 [employer] Patient Education 2022 [employer]. Follow Up Care 12/25/2023 17:08:31 With:Aashish CONWAY Address: [address], [place] [address]- Business (1) When:12/28/2023 18:28:09 [facility] Clinical Note 12-25-2023 Note Date & Type [...] health care provider. ? Apply or take xarr-bvx-anmjkax and prescription medicines only as told by [...] swarm seems likely. (more content not included)... [facility] Discharge instructions 10-25-2023 Note Date & Type Note Facility 10-25-2023 Hospital Discharg e instructions Patient Education 10/25/2023 13:10:35 Allergies, Adult, Uyws-lt-Snbi Allergies, Adult An allergy means that your [...] instructions at home: Medicines Take or apply lkuv-cjl-zybrcil and prescription medicines only as told by [...] to the hospital. Summary Take or apply cmrh-bjv-faagome and prescription medicines only as told by [...] provider. Document Revised: 03/13/2020 Document Reviewed: 03/13/2020 [employer] Patient Education 2022 [employer]. 10/25/2023 13:10:27 Back Exercises, Czgj-ap-Wubs Back Exercises These exercises help to make [...] provider. Document Revised: 07/16/2021 Document Reviewed: 07/16/2021 [employer] Patient Education 2022 [employer]. Follow Up Care 07/19/2023 12:36:38 With:MAN LEAL FAAFP, Aashish Vasquez, FAM, PED Address: [address], [place] [address]- When:Within 1 Year(s) With:Aashish CONWAY DO, FAAFP, FAM, PED Address: [address] [place] [address] [place] [address]- When:Within 6 Month(s) [facility] Progress note 05-13-2023 Note Date & Type Note Facility 05-13-2023 Note HNO ID: [id number] Author: Clementine Page, DELMER Service: ? Author Type: SPEED READING TEACHER Type: Progress Notes Filed: 05/13/2023 3:16 [...] Page, OD May 13, 2023 3:15 PM [facility] Evaluation + Plan note Note Date & Type Note Facility Evaluation + Plan note [facility] Hospital course Narrative Note Date & Type Note Facility Hospital course Narrative No data available for this section [facility] Progress note Note Date & Type Note Facility Progress note No data available for this section [facility] Reason for referral (narrative) Note Date & Type Note Facility Reason for referral (narrative) Referred by: Aashish CONWAY DO, FAAFP [facility] Summary Purpose Family History No [...] section and content) DATE CREATED AUTHOR 05/15/2023 [facility] DATE CREATED AUTHOR AUTHOR'S ORGANIZ ATION 12/23/2023 [facility] DATE CREATED AUTHOR AUTHOR'S ORGANIZ ATION 01/06/2024 [facility] Patient Care team informatio n (unrecognized section and content) Personnel Name: Aashish CONWAY DO, FAAFP Address: Address: [address] [place] [address] Personnel Name: Aashish CONWAY DO, FAAFP Address: Address: [address] [place] [address] FOR RECORDS PERTAINING TO PATIENTS WHO ARE [...] BE BASED ON THE PRIMARY CLINICAL RECORDS. [facility] [employer] [facility]. provides no warranty or guarantee of the accuracy or completeness of information in this document.
== END 2024-07-19 13:08 | disposition home or self-care (01) ==
LOC: RAD 13:07
PROVIDERS: PCP Family Medicine; Visit Provider Podiatrist Foot & Ankle Surgery
DX: M79.672 Pain in left foot (principal); Z98.890 Other specified postprocedural states
CPT/HCPCS: 73630

== ENCOUNTER 2024-08-23 13:18 | Outpatient (OUT) | payer MEDICAID, SELFPAY ==
--- NOTE | 2024-08-23 13:21 | XR_ITS ---
The [address] [address] Patient Name: BOB LIMA MRN: [id number] date: 1960 Sex: M Assigned Patient Location: [facility] Current Patient Location: [facility] Accession/Order Number: [id number] Exam Date: 08/23/2024 14:05 Report Date: 08/23/2024 14:08 At the request of: BOB BREWER DPRebekah Procedure: XR foot RT min 3V RIGHT FOOT - 3 views CLINICAL HISTORY: Follow-up right foot surgery. COMPARISON: Right foot series 07/19/2024 FINDINGS: Hardware fixation is seen involving the first MTP joint without hardware complication. Additional hardware is seen involving the head of the second metatarsal without hardware complication. There appears to be surrounding callus formation similar to the prior study. No acute fracture is seen. Mild degenerative changes of the talonavicular joint. No bony erosions. Presumed surgical resection of the heads of the fourth and fifth proximal phalanges. XR/XR foot RT min 3V IMPRESSION: NO HARDWARE COMPLICATION. Impression dictated by: Jcarlos Avelar Jr., D.O.08/23/2024 2:08 PM Dictation Location: [facility]ENTER[facility] Electronically authenticated by: [id number] Y Date: 08/23/2024 14:08
== END 2024-08-23 13:19 | disposition home or self-care (01) ==
LOC: RAD 13:18
PROVIDERS: PCP Family Medicine; Visit Provider Podiatrist Foot & Ankle Surgery
DX: M79.671 Pain in right foot (principal); Z98.890 Other specified postprocedural states
CPT/HCPCS: 73630